=== PATIENT | male | born 1985 | race Caucasian/White ===

== ENCOUNTER 2017-02-06 14:01 | Emergency (ER) | payer OTHER ==
[~2017-02-06] VITALS: Ht 177.8 cm; Wt 76.5 kg
[~2017-02-06 14:01] MED LIST: CHLO50TA PO; IBUP-103 PO; ONDA4TAB7 SL
[2017-02-06 14:13] VITALS: TEMP 37.2; Ht 177.8 cm; Wt 76.5 kg
[2017-02-06] MEDS ORDERED: METH10TA2 PO (14:39)
[2017-02-06] MEDS ORDERED: SODIUM CHLORIDE 0.9% 1000ML 1,000 ML IV STA ×2 (15:14→17:04)
[2017-02-06 15:25] VITALS: O2SAT 97
[2017-02-06] MEDS ORDERED: KETOROLAC TROMETHAMINE 30 MG/ML VIAL IV STA (15:36)
[2017-02-06 15:46] LABS: BASO % 0.4 %; BASO ABS # 0.04 K/uL (0-0.2); COMPLETE YES; EOS % 1.5 %; IG% 0.2 %; LYMPH % 32.7 %; LYMPH ABS # 3.49 K/uL (1.2-3.4); MEAN CELL VOLUME 86.4 fL (80-100); MEAN CORPUSCULAR HEMOGLOBIN 30.9 pg (25-34); MEAN CORPUSCULAR HGB CONC 35.8 g/dl (32-36); MONO % 7.5 %; NEUT % 57.7 %; PLATELET COUNT 281 K/uL (130-400); RED BLOOD COUNT 5.21 M/uL (4.7-6.1); WHITE BLOOD COUNT 10.66 K/uL (4.8-10.8)
--- NOTE | 2017-02-06 15:55 | DIAGNOSTIC IMAGING REPORT ---
CHEST 2 VIEWS ROUTINE CLINICAL HISTORY: cough, chest pain COMPARISON STUDY: 09/09/2013 FINDINGS: The cardiac and mediastinal contours are normal. There is no evidence of focal pulmonary consolidation. There is no evidence of failure. No pleural effusions are visualized.[ IMPRESSION: No active disease in the chest. Electronically signed by: Júnior Melendrez M.D. 02/06/2017 3:54 PM Dictated Date/Time: 02/06/2017 3:53 PM
[2017-02-06 16:04] LABS: BUN/CREATININE RATIO 12.2 (10-20); CALCIUM 9.2 mg/dl (8.5-10.1); CREATININE 0.85 mg/dl (0.60-1.40)
[2017-02-06 16:07] LABS: ALB/GLOB RATIO 1.1 (0.9-2)
[2017-02-06 16:21] LABS: URINE APPEARANCE CLEAR (CLEAR); URINE BILIRUBIN NEG (NEG); URINE COLOR DK YELLOW; URINE NITRITE NEG (NEG); URINE PH 6.5 (4.5-7.5); URINE SPECIFIC GRAVITY 1.026 (1.000-1.030); UROBILINOGEN NEG (NEG); ZZUR CULT IF INDIC CLEAN CATCH NO
[2017-02-06 16:26] LABS: MANUAL MICROSCOPIC REQUIRED? NO; REVIEW REQ? NO
[2017-02-06] MEDS ORDERED: METH4PAK PO (17:56)
[2017-02-06] MEDS ORDERED: AMOX500T3 PO (17:56)
--- NOTE | 2017-02-06 17:57 | EMERGENCY ROOM VISIT NOTE ---
History First contact with patient: 15:02 Chief Complaint: ILLNESS Stated Complaint: SICK, CP, WEST, SORETHROAT, COUGHING UP BLOOD History of Present Illness The patient is a 31 year old male who presents to the Emergency Room with complaints of flulike symptoms which began 3 days ago. The patient reports that he has had substernal chest discomfort, sore throat, fatigue, headaches, chills, cough and pressure in his years. He has not taken his temperature, but feels feverish. He reports he has had 2 episodes of vomiting, both of which were streaked with a scant amount of bright red blood. The patient does report he is exposed to several ill contacts daily at his job. He is a smoker. The patient did not receive a flu vaccination this year. He denies any neck pain/ stiffness, abdominal pain, urinary symptoms, changes in bowel movements or shortness of breath. He has not been taking any medication for his symptoms. Review of Systems A complete 10-point Review of Systems was discussed with the patient, with pertinent positives and negatives listed in the History of Present Illness. All remaining Review of Systems questions can be considered negative unless otherwise specified. Past Medical/Surgical History Medical Problems: (1) Kidney stone (2) Polyp of gallbladder Social History Smoking Status: Current Every Day Smoker Alcohol Use: none Marital Status: Housing Status: lives with significant other Occupation Status: employed Current/Historical Medications Scheduled Amoxicillin (Amoxil), 500 MG PO TID Methadone Hcl (Dolophine), 59 MG PO DAILY Methylprednisolone (Medrol Dosepak), 0 PO DAILY Allergies Coded Allergies: Morphine (Verified Allergy, Intermediate, hives, 02/06/17) Physical Exam Vital Signs Date Time Temp Pulse Resp B/P Pulse Ox O2 Delivery O2 Flow Rate FiO2 02/06/17 18:30 76 16 106/74 97 02/06/17 17:33 60 16 110/66 96 Room Air 02/06/17 16:03 63 02/06/17 15:58 67 18 105/59 96 Room Air 02/06/17 15:25 97 Room Air 02/06/17 14:13 37.2 118 18 151/94 97 Room Air Physical Exam VITALS: Vitals are noted on the nurse's note and reviewed by myself. Vital signs stable. GENERAL: This is a 31-year-old male, in no acute distress, nontoxic in appearance, well-developed well-nourished. SKIN: The skin was without rashes. EARS: External auditory canals clear, tympanic membranes pearly hoff without erythema or effusion bilaterally. EYES: Pupils equal round and reactive to light and accommodation. Conjunctivae without injection, sclerae without icterus. Extraocular movements intact. NOSE: Patent, turbinates without inflammation or discharge. No sinus tenderness. MOUTH: Mucous membranes moist. Tonsils are not enlarged. Pharynx without erythema or exudate. NECK: Supple without nuchal rigidity. No lymphadenopathy. No meningismus. HEART: Regular rate and rhythm without murmurs gallops or rubs. LUNGS: Clear to auscultation bilaterally without wheezes, rales or rhonchi. ABDOMEN: Positive bowel sounds x 4. Soft, nontender to palpation. NEURO: Patient was alert and oriented to person place and time. Medical Decision & Procedures ER Provider Diagnostic Interpretation: CHEST 2 VIEWS ROUTINE CLINICAL HISTORY: cough, chest pain COMPARISON STUDY: 09/09/2013 FINDINGS: The cardiac and mediastinal contours are normal. There is no evidence of focal pulmonary consolidation. There is no evidence of failure. No pleural effusions are visualized.[ IMPRESSION: No active disease in the chest. Laboratory Results 02/06/17 15:25 Red Blood Count 5.21, Mean Corpuscular Volume 86.4, Mean Corpuscular Hemoglobin 30.9, Mean Corpuscular Hemoglobin Concent 35.8, Mean Platelet Volume 10.0, Neutrophils (%) (Auto) 57.7, Lymphocytes (%) (Auto) 32.7, Monocytes (%) (Auto) 7.5, Eosinophils (%) (Auto) 1.5, Basophils (%) (Auto) 0.4, Neutrophils # (Auto) 6.15, Lymphocytes # (Auto) 3.49, Monocytes # (Auto) 0.80, Eosinophils # (Auto) 0.16, Basophils # (Auto) 0.04 02/06/17 15:25 Test 02/06/17 15:25 02/06/17 15:35 White Blood Count 10.66 K/uL (4.8-10.8) Red Blood Count 5.21 M/uL (4.7-6.1) Hemoglobin 16.1 g/dL (14.0-18.0) Hematocrit 45.0 % (42-52) Mean Corpuscular Volume 86.4 fL (80-100) Mean Corpuscular Hemoglobin 30.9 pg (25-34) Mean Corpuscular Hemoglobin Concent 35.8 g/dl (32-36) Platelet Count 281 K/uL (130-400) Mean Platelet Volume 10.0 fL (7.4-10.4) Neutrophils (%) (Auto) 57.7 % Lymphocytes (%) (Auto) 32.7 % Monocytes (%) (Auto) 7.5 % Eosinophils (%) (Auto) 1.5 % Basophils (%) (Auto) 0.4 % Neutrophils # (Auto) 6.15 K/uL (1.4-6.5) Lymphocytes # (Auto) 3.49 K/uL (1.2-3.4) Monocytes # (Auto) 0.80 K/uL (0.11-0.59) Eosinophils # (Auto) 0.16 K/uL (0-0.5) Basophils # (Auto) 0.04 K/uL (0-0.2) RDW Standard Deviation 38.6 fL (36.4-46.3) RDW Coefficient of Variation 12.1 % (11.5-14.5) Immature Granulocyte % (Auto) 0.2 % Immature Granulocyte # (Auto) 0.02 K/uL (0.00-0.02) D-Dimer 320 ug/L FEU (0-500) Urine Color DK YELLOW Urine Appearance CLEAR (CLEAR) Urine pH 6.5 (4.5-7.5) Urine Specific [place] 1.026 (1.000-1.030) Urine Protein NEG (NEG) Urine Glucose (UA) NEG (NEG) Urine Ketones TRACE (NEG) Urine Occult Blood NEG (NEG) Urine Nitrite NEG (NEG) Urine Bilirubin NEG (NEG) Urine Urobilinogen NEG (NEG) Urine Leukocyte Esterase NEG (NEG) Anion Gap 7.0 mmol/L (3-11) Est Creatinine Clear Calc Drug Dose 127.6 ml/min Estimated GFR () 132.7 Estimated GFR (Non- 114.5 BUN/Creatinine Ratio 12.2 (10-20) Calcium Level 9.2 mg/dl (8.5-10.1) Total Bilirubin 0.8 mg/dl (0.2-1) Aspartate Amino Transf (AST/SGOT) 15 U/L (15-37) Alanine Aminotransferase (ALT/SGPT) 32 U/L (12-78) Alkaline Phosphatase 111 U/L (45-117) Troponin I < 0.015 ng/ml (0-0.045) Total Protein 7.9 gm/dl (6.4-8.2) Albumin 4.2 gm/dl (3.4-5.0) Globulin 3.7 gm/dl (2.5-4.0) Albumin/Globulin Ratio 1.1 (0.9-2) Influenza Type A Antigen Neg for Influ A (NEG) Influenza Type B Antigen Neg for Influ B (NEG) Medications Administered Medications (Trade) Dose Ordered Sig/Anthony Route Start Time Stop Time Status Last Admin Dose Admin Sodium Chloride (Nss 1000ml) 1,000 ml @ 999 mls/hr Q1H1M STAT IV 02/06/17 15:14 02/06/17 16:14 DC 02/06/17 15:31 999 MLS/HR Ketorolac Tromethamine 30 mg 30 mg NOW STAT IV 02/06/17 15:36 02/06/17 15:37 DC 02/06/17 15:42 30 MG Sodium Chloride (Nss 1000ml) 1,000 ml @ 999 mls/hr Q1H1M STAT IV 02/06/17 17:04 02/06/17 18:04 DC 02/06/17 17:15 999 MLS/HR ECG Indication: chest pain Rate (beats per minute): 59 Rhythm: sinus bradycardia Findings: no acute ischemic change, no ectopy Change: no significant change Medical Decision Differential diagnosis includes influenza, upper respiratory infection, asthma exacerbation, pulmonary embolism, pneumonia, among others. The patient was evaluated as above. Labs were drawn and IV access was obtained. Imaging studies were performed and read by radiology as above. The patient was medicated with 2 L normal saline solution and 30 g Toradol IV. The patient was reassessed multiple times during their stay in the emergency department and remained in stable condition. The patient is a 31-year-old male who presents today complaining of flulike symptoms. His main complaint is cough and substernal chest discomfort. Labs revealed no leukocytosis, anemia or concerning electrolyte abnormalities. D- dimer was not elevated. Troponin was not elevated. Urinalysis was not suggestive of infection. Chest x-ray showed no evidence of pneumonia. EKG was interpreted by myself and showed no evidence of ischemia. The patient likely has an upper respiratory infection. The blood in his vomit was likely due to esophageal irritation. He will be placed on amoxicillin and medrol dosepak for bronchitis. He was instructed to follow up with his primary care provider and return sooner for worsening symptoms. Based on the patient's presentation, lab results, and imaging studies, I feel the patient is stable for outpatient treatment. Discharge instructions were reviewed with the patient. The patient verbalized understanding of my assessment and treatment plan and was discharged home in good condition. Impression Primary Impression: Upper respiratory infection Departure Information Dispostion Home / Self-Care Condition GOOD Prescriptions Methylprednisolone (MEDROL DOSEPAK) 4 Mg [place] 0 PO DAILY, #1 PKT Prov: Graciela Washington .PATRICIA 02/06/17 Amoxicillin (AMOXIL) 500 Mg Tab 500 MG PO TID for 7 Days, #21 TAB Prov: Graciela Washington .PATRICIA 02/06/17 Referrals Shola Tillman M.D. (PCP) Patient Instructions My [facility] Additional Instructions You were prescribed amoxicillin to be taken as prescribed. This is an antibiotic. All antibiotics have the potential to cause diarrhea. Stop this medication and contact a medical provider if you were to develop any significant adverse side effects including: wheezing, shortness of breath, passing out, vomiting, or a diffuse rash. Always take antibiotics as directed and COMPLETE the ENTIRE course regardless of the improvement of your symptoms. You have been prescribed a Medrol Dosepak. This is a steroid which will help decrease your inflammation, redness, and itch. Take the medicine as prescribed. Take the ENTIRE 6 day course of the steroids. For pain control, you can use the following [id number] medicines (if >12 yo): - Regular strength (325mg/tab) Tylenol (acetaminophen) 2 tabs every 4-6 hours as needed. Do not exceed 12 tablets in a 24 hour period. Avoid taking more than 4 grams (4000 mg) of Tylenol per day. This includes any other sources of acetaminophen you may take on a regular basis. - Regular strength (200 mg/tab) Advil (ibuprofen) 1-2 tabs every 4-6 hours as needed. Do not exceed a dose of 3200 mg per day. Rest and drink plenty of fluids. Follow-up with her primary care provider within 3-4 days for further evaluation of your symptoms. Return to the emergency department with worsening fevers, worsening chest pain, difficulty breathing, neck pain/stiffness, or any other new/concerning symptoms. Problem Qualifiers Primary Impression: Upper respiratory infection URI type: unspecified URI Qualified Codes: J06.9 - Acute upper respiratory infection, unspecified
[2017-02-06 18:30] VITALS: BP 106/74; PULSE 76; O2SAT 97
[2017-06-25] MEDS ORDERED: IBUP-1050 PO (16:05)
[2017-06-25] MEDS ORDERED: METH10SO PO (16:05)
== END 2017-02-06 18:31 | disposition home or self-care (01) ==
LOC: C.EDB 14:04 → C.EDA 18:31
DX: J06.9 Acute upper respiratory infection, unspecified (principal); F17.210 Nicotine dependence, cigarettes, uncomplicated; Z87.442 Personal history of urinary calculi; Z79.899 Other long term (current) drug therapy

== ENCOUNTER → 2017-06-08 | Outpatient (CLI) | payer OTHER ==
[~2017-06-08] MED LIST changes: +AMOX500T3 PO; -CHLO50TA PO; -IBUP-103 PO; +IBUP-1050 PO; +METH10SO PO; +METH10TA2 PO; -ONDA4TAB7 SL
--- NOTE | 2017-06-08 17:21 | DIAGNOSTIC IMAGING REPORT ---
KUB CLINICAL HISTORY: Renal calculi COMPARISON STUDY: July 25, 2016 FINDINGS: There is no pathologic bowel dilatation. There is a stable 6 mm lower pole left renal calculus. The renal shadows are partially obscured overlying bowel gas and fecal material. There are no calcifications suspicious for ureteral calculi. IMPRESSION: Stable 6 mm lower pole left renal calculus Electronically signed by: Júnior Melendrez M.D. 06/08/2017 5:20 PM Dictated Date/Time: 06/08/2017 5:19 PM
== END | disposition home or self-care (01) ==
LOC: C.RAD 17:02
PROVIDERS: ATTEND Nurse Practitioner Family
DX: N20.0 Calculus of kidney (principal)

== ENCOUNTER → 2017-07-17 | Outpatient (CLI) | payer OTHER ==
[~2017-07-17] MED LIST changes: -AMOX500T3 PO; -METH10TA2 PO
[2017-07-17 17:57] LABS: BASO % 0.3 %; BASO ABS # 0.03 K/uL (0-0.2); COMPLETE YES; EOS % 3.6 %; HEMATOCRIT 38.9 % (42-52); IG% 0.1 %; LYMPH % 47.9 %; LYMPH ABS # 4.13 K/uL (1.2-3.4); MEAN CELL VOLUME 87.6 fL (80-100); MEAN CORPUSCULAR HEMOGLOBIN 30.2 pg (25-34); MEAN CORPUSCULAR HGB CONC 34.4 g/dl (32-36); MEAN PLATELET VOLUME 10.5 fL (7.4-10.4); MONO % 6.3 %; NEUT % 41.8 %; PLATELET COUNT 262 K/uL (130-400); RED BLOOD COUNT 4.44 M/uL (4.7-6.1); WHITE BLOOD COUNT 8.62 K/uL (4.8-10.8)
[2017-07-17 18:05] LABS: URINE APPEARANCE CLEAR (CLEAR); URINE BILIRUBIN NEG (NEG); URINE COLOR YELLOW; URINE EPITHELIAL CELL AUTO 0-5 /lpf (0-5); URINE NITRITE NEG (NEG); URINE PH 6.5 (4.5-7.5); URINE SPECIFIC GRAVITY 1.029 (1.000-1.030); UROBILINOGEN NEG (NEG)
[2017-07-17 18:11] LABS: MANUAL MICROSCOPIC REQUIRED? NO; REVIEW REQ? NO
[2017-07-17 18:23] LABS: BLOOD UREA NITROGEN 8 mg/dl (7-18); BUN/CREATININE RATIO 10.1 (10-20); CARBON DIOXIDE 28 mmol/L (21-32); CHLORIDE 109 mmol/L (98-107); POTASSIUM 3.4 mmol/L (3.5-5.1); SODIUM 142 mmol/L (136-145)
== END | disposition home or self-care (01) ==
LOC: C.CPL 16:32
PROVIDERS: ATTEND Nurse Practitioner Family
DX: N20.0 Calculus of kidney (principal)

== ENCOUNTER → 2017-07-25 | Outpatient (CLI) | payer OTHER ==
--- NOTE | 2017-07-25 18:17 | DIAGNOSTIC IMAGING REPORT ---
KUB CLINICAL HISTORY: 31 years-old Male presenting with NEPHROLITHIASIS. TECHNIQUE: Single supine view of the abdomen was obtained. COMPARISON: 06/08/2017. FINDINGS: Moderate stool burden in the right colon. Stool and gas degrade evaluation of the renal shadows. Within this limitation, calcification noted over the left lower pole consistent with calculus. This is unchanged in position. Nonobstructive bowel gas pattern. Lung bases clear. Osseous structures normal. IMPRESSION: 1. Stable appearance of the left lower pole renal calculus. Electronically signed by: Jermaine Wilson M.D. 07/25/2017 6:15 PM Dictated Date/Time: 07/25/2017 6:14 PM
== END | disposition home or self-care (01) ==
LOC: C.RAD 17:34
PROVIDERS: ATTEND Nurse Practitioner Family
DX: N20.0 Calculus of kidney (principal)

== ENCOUNTER → 2017-07-26 | Day surgery (SDC) | payer OTHER ==
[2017-06-25 16:05] VITALS: Ht 177.8 cm; Wt 77.3 kg
[~2017-07-26] VITALS: Ht 177.8 cm; Wt 77.3 kg
[~2017-07-26] MED LIST changes: +ATROPINE SULFATE 0.1 MG/ML 5ML SYR IV PRN; +CEFAZOLIN 1000MG/55 ML D5W IV SCH; +CEFAZOLIN SOD 1 GM VIAL ONE; +CIPROFLOXACIN 400MG / D5W IV SCH; +DEXAMETHASONE SOD INJ 4 MG/ML VIAL ONE; +EpHEDrine SULFATE INJ 50 MG/ML AMP IV PRN; +EpHEDrine SULFATE INJ 50 MG/ML AMP ONE; +FENTANYL CITRATE INJ 50 MCG/1 ML 2 ML VIAL IV PRN; +FENTANYL CITRATE INJ 50 MCG/1 ML 2 ML VIAL ONE; +FLUMAZENIL 0.1 MG/1 ML 10 ML VIAL IV PRN; +LABETALOL HCL IV 5 MG/ML 20ML IV PRN; +LACTATED RINGER'S 1000ML 1,000 ML IV SCH; +LIDOCAINE HCL 2% 2 ML VIAL (20MG/ML) ONE; +MEPERIDINE HCL 25 MG/ML CARP IV PRN; +MIDAZOLAM HCL 1 MG/ML 2ML VIAL ONE; +NALOXONE HCL 0.4 MG/1 ML VIAL/CARP IV PRN; +ONDANSETRON INJ 2 MG/ML 2 ML VIAL IV PRN; +ONDANSETRON INJ 2 MG/ML 2 ML VIAL ONE; +PHENYLEPHRINE 100MCG/ML 5ML SYR IV PRN; +PROPOFOL IV EMULSION 10 MG/ML 20 ML VIAL IV ONE
--- NOTE | 2017-07-26 08:56 | History & Physical Bridge - SC ---
H&P Re-Evaluation Bridge Note: I have examined the patient, reviewed the History & Physical and in the interval since the performance of the History & Physical I have noted the following changes of clinical significance: No changes noted
--- NOTE | 2017-07-26 09:37 | [facility] Post Operative Brief Note ---
Immediate Operative Summary Operative Date Jul 26, 2017. Pre-Operative Diagnosis Left renal calculi Post-Operative Diagnosis Same as pre-op Procedure(s) Performed Left Extracorporeal Shock Wave Lithotripsy - Renal Surgeon Dr. Hayes Tang [employer] Surgeon(s) None Estimated Blood Loss 0 mL Findings stone appeared to break Specimens None
--- NOTE | 2017-07-26 09:39 | Discharge Instructions-SurgCtr ---
Discharge Instructions Date of Service Jul 26, 2017. Visit Reason for Visit: Stones Discharge Discharge Diagnosis / Problem: l lower pole stone Discharge Goals Goal(s): Improve disease control Activity Recommendations Activity Limitations: resume your previous activity Anesthesia . Post Anesthesia Instructions: If you have had General Anesthesia or IV Sedation: * Do not drive today. * Resume driving when surgeon permits. * Do not make important decisions or sign legal documents today. * Call surgeon for: 1. Temperature elevations greater than 101 degrees F. 2. Uncontrollable pain. 3. Excessive bleeding. 4. Persistent nausea and vomiting. 5. Medication intolerance (nausea, vomiting or rash). * For nausea and vomiting use only clear liquids such as: tea, soda, bouillon until nausea subsides, then gradually increase diet as tolerated. * If you have any concerns or questions, call your surgeon's office. If physician is unavailable and it is an emergency, call 911 or go to the nearest emergency room. . Diet Recommendations Home Diet: resume previous diet Procedures Procedures Performed: Left Extracorporeal Shock Wave Lithotripsy - Renal Pending Studies Studies pending at discharge: no Medical Emergencies . Who to Call and When: Medical Emergencies: If at any time you feel your situation is an emergency, please call 911 immediately. . Non-Emergent Contact Non-Emergency issues call your: Urologist . . "Provider Documentation" section prepared by Darrell Tang. .
--- NOTE | 2017-07-26 10:33 | Anesthesia Progress Nt - [facility] ---
Anesthesia Post Op Note Date & Time Jul 26, 2017 at 10:33 Vital Signs Pain Intensity: 3 Vital Signs Past 12 Hours Date Time Temp Pulse Resp B/P (MAP) Pulse Ox O2 Delivery O2 Flow Rate FiO2 07/26/17 10:25 36.4 78 16 119/89 (99) 96 Room Air 07/26/17 10:20 36.4 70 19 128/87 96 Room Air 07/26/17 10:15 125/82 07/26/17 10:15 125/82 07/26/17 10:13 89 26 96 07/26/17 10:13 89 26 96 07/26/17 10:13 91 26 07/26/17 10:13 91 26 07/26/17 10:10 122/80 07/26/17 10:10 122/80 07/26/17 10:08 77 12 97 07/26/17 10:08 77 12 07/26/17 10:08 77 12 97 07/26/17 10:08 77 12 07/26/17 10:05 120/81 07/26/17 10:05 120/81 07/26/17 10:03 76 17 07/26/17 10:03 77 17 98 07/26/17 10:03 76 17 07/26/17 10:03 77 17 98 07/26/17 10:00 134/85 07/26/17 10:00 134/85 07/26/17 09:58 78 14 98 07/26/17 09:58 77 14 07/26/17 09:58 78 14 98 07/26/17 09:58 77 14 07/26/17 09:55 124/80 07/26/17 09:55 124/80 07/26/17 09:53 76 15 07/26/17 09:53 76 15 99 07/26/17 09:53 76 15 99 07/26/17 09:53 76 15 07/26/17 09:50 124/83 07/26/17 09:50 124/83 07/26/17 09:48 74 13 99 07/26/17 09:48 74 13 07/26/17 09:48 74 13 99 07/26/17 09:48 74 13 07/26/17 09:47 72 15 99 07/26/17 09:47 73 15 07/26/17 09:45 119/79 07/26/17 09:43 115/74 07/26/17 09:42 36.1 72 14 115/74 99 Mask 8 07/26/17 07:19 36.9 75 22 125/85 (98) 96 Room Air Notes Mental Status: alert / awake / arousable, participated in evaluation Pt Amnestic to Procedure: Yes Nausea / Vomiting: adequately controlled Pain: adequately controlled Airway Patency, RR, SpO2: stable & adequate BP & HR: stable & adequate Hydration State: stable & adequate Anesthetic Complications: no major complications apparent
[2017-07-26 10:45] VITALS: BP 121/83; PULSE 82; O2SAT 97
--- NOTE | 2017-07-26 11:50 | OPERATIVE REPORT ---
DATE OF OPERATION: 07/26/2017 PREOPERATIVE DIAGNOSIS: Left lower pole renal stone. POSTOPERATIVE DIAGNOSIS: Same. SURGEON: Dr. Tang. PROCEDURE PERFORMED: Left renal ESWL. ANESTHESIA: General. INDICATIONS: The patient is a 31-year-old male with a left lower pole stone, here for elective ESWL. DESCRIPTION OF THE PROCEDURE: The patient was taken to the operating room where general anesthesia was administered. He had Venodyne stockings placed prior to this and was given preoperative Ancef. The stone was easily visualized from posteriorly. The patient was given 2500 shocks, the majority at level 4. The stone did appear to fragment. At the end of the procedure, the patient was transferred to the recovery room in stable condition. I attest to the content of the Intraoperative Record and any orders documented therein. Any exception s are noted below.
== END | disposition home or self-care (01) ==
LOC: X.SURG 07:04
PROVIDERS: ATTEND Urology
DX: N20.0 Calculus of kidney (principal); R10.9 Unspecified abdominal pain; F11.20 Opioid dependence, uncomplicated; L25.9 Unspecified contact dermatitis, unspecified cause; K82.9 Disease of gallbladder, unspecified; E87.8 Other disorders of electrolyte and fluid balance, not elsewhere classified; R11.2 Nausea with vomiting, unspecified; R35.0 Frequency of micturition; F17.200 Nicotine dependence, unspecified, uncomplicated

== ENCOUNTER → 2017-08-26 | Outpatient (CLI) | payer OTHER ==
[~2017-08-26] MED LIST changes: -ATROPINE SULFATE 0.1 MG/ML 5ML SYR IV PRN; -CEFAZOLIN 1000MG/55 ML D5W IV SCH; -CEFAZOLIN SOD 1 GM VIAL ONE; -CIPROFLOXACIN 400MG / D5W IV SCH; -DEXAMETHASONE SOD INJ 4 MG/ML VIAL ONE; -EpHEDrine SULFATE INJ 50 MG/ML AMP IV PRN; -EpHEDrine SULFATE INJ 50 MG/ML AMP ONE; -FENTANYL CITRATE INJ 50 MCG/1 ML 2 ML VIAL IV PRN; -FENTANYL CITRATE INJ 50 MCG/1 ML 2 ML VIAL ONE; -FLUMAZENIL 0.1 MG/1 ML 10 ML VIAL IV PRN; -LABETALOL HCL IV 5 MG/ML 20ML IV PRN; -LACTATED RINGER'S 1000ML 1,000 ML IV SCH; -LIDOCAINE HCL 2% 2 ML VIAL (20MG/ML) ONE; -MEPERIDINE HCL 25 MG/ML CARP IV PRN; -MIDAZOLAM HCL 1 MG/ML 2ML VIAL ONE; -NALOXONE HCL 0.4 MG/1 ML VIAL/CARP IV PRN; -ONDANSETRON INJ 2 MG/ML 2 ML VIAL IV PRN; -ONDANSETRON INJ 2 MG/ML 2 ML VIAL ONE; -PHENYLEPHRINE 100MCG/ML 5ML SYR IV PRN; -PROPOFOL IV EMULSION 10 MG/ML 20 ML VIAL IV ONE
--- NOTE | 2017-08-26 16:50 | DIAGNOSTIC IMAGING REPORT ---
KUB CLINICAL HISTORY: N20.0 Nephrolithiasis COMPARISON STUDY: 07/25/2017 FINDINGS: There is no pathologic bowel dilatation. The renal shadows are partially obscured by overlying bowel gas and fecal material. There are punctate bilateral renal calcifications consistent with calculi. There is decreased left renal stone burden. IMPRESSION: 1. No evidence of bowel obstruction 2. Bilateral nephrolithiasis with interval decrease in the left-sided stone burden Electronically signed by: Júnior Melendrez M.D. 08/26/2017 4:49 PM Dictated Date/Time: 08/26/2017 4:48 PM
== END | disposition home or self-care (01) ==
LOC: C.RAD 16:34
PROVIDERS: ATTEND Nurse Practitioner Family
DX: N20.0 Calculus of kidney (principal)

== ENCOUNTER 2017-10-15 09:06 | Emergency (ER) | payer OTHER ==
[~2017-10-15] VITALS: Ht 177.8 cm; Wt 74.7 kg
[2017-10-15 09:13] VITALS: TEMP 36.6; Ht 177.8 cm; Wt 74.7 kg
--- NOTE | 2017-10-15 09:47 | EMERGENCY ROOM VISIT NOTE ---
History Report prepared by Wyatt: Sushma King Under the Supervision of: Dr. Jesus Manuel Max M.D. First contact with patient: 09:10 Stated Complaint: ABDOMINAL PAIN History of Present Illness The patient is a 31 year old white male with a past medical history of kidney stones, gallbladder polyp, lithotripsy who presents to the ED with a cc of persistent abdominal pain beginning around 0530 this morning. Positive nausea and vomiting. He currently rates his discomfort as an 8/10 in severity. The patient states that he currently takes methadone for a past history of drug addiction. He denies any recent drug use. The patient denies any alcohol use, but states that he uses tobacco. He denies any recent travel, antibiotic use, or sick contacts. The patient states that his last bowel movement was this morning. Source of History: patient Onset: 0530 this morning Position: abdomen Symptom Intensity: 8/10 Timing: other (persistent) Associated Symptoms: + nausea, + vomiting Review of Systems See HPI for pertinent positives and negatives. A total of ten systems were reviewed and were otherwise negative. Past Medical & Surgical Medical Problems: (1) Bronchitis (2) Hypertension (3) Kidney stone (4) Pneumonia (5) Polyp of gallbladder Family History Cancer FHx: gallbladder disease Hypertension Kidney disease Kidney stones Lung disease Social History Smoking Status: Current Every Day Smoker Alcohol Use: none Marital Status: Housing Status: lives with significant other Occupation Status: employed Current/Historical Medications Scheduled Methadone Hcl (Methadone Hcl), 43 MG PO QAM Ondasetron Odt (Zofran Odt), 4 MG SL Q6H Allergies Coded Allergies: Morphine (Verified Allergy, Intermediate, hives, 10/15/17) Ciprofloxacin (Verified Adverse Reaction, Unknown, REACTION WITH METHADONE , 10/15/17) Clarithromycin (Verified Adverse Reaction, Unknown, REACTION WITH METHADONE, 10/15/17) Erythromycin (Verified Adverse Reaction, Unknown, REACTION WITH METHADONE , 10/15/17) Tramadol (Verified Adverse Reaction, Unknown, REACTION WITH METHADONE, ) Physical Exam Vital Signs Date Time Temp Pulse Resp B/P (MAP) Pulse Ox O2 Delivery O2 Flow Rate FiO2 10/15/17 12:51 70 20 120/71 100 10/15/17 10:56 76 20 118/83 97 10/15/17 09:13 36.6 63 20 112/73 95 Room Air Physical Exam GENERAL: Awake, alert, well-appearing, NAD HENT: Normocephalic, atraumatic. EYES: Normal conjunctiva. Sclera non-icteric. NECK: Supple. No nuchal rigidity. FROM. RESPIRATORY: CTAB, no rhonchi, wheezing, crackles CARDIAC: RRR, no MRG ABDOMEN: Soft, Periumbilical pain, diffuse, generalized tenderness to palpation , no CVA tenderness to palpation, ND, BS+ MSK: No chest wall TTP, no LE edema NEURO: GCS 15, CN 2-12 intact, moves all 4s on command SKIN: Diaphoretic. No rash or jaundice noted. Medical Decision & Procedures ER Provider Diagnostic Interpretation: X-ray: Per my interpretation, radiologist review. ABDOMEN 2VIEW W/PA CHEST RTN CLINICAL HISTORY: Abdominal pain COMPARISON STUDY: 08/26/2017 FINDINGS: The erect chest reveals no free air. There is no focal pulmonary consolidation. Erect and supine views the abdomen reveal no abnormally dilated loops of large or small bowel. There are no transition zones indicate bowel obstruction. There is a punctate left renal calculus. The right renal shadow is largely obscured, but the previously described tiny right renal calculus is again felt to be present. IMPRESSION: 1. Bilateral nephrolithiasis 2. No evidence of bowel obstruction. No evidence of free air Electronically signed by: Júnior Melendrez M.D. 10/15/2017 10:46 AM Dictated Date/Time: 10/15/2017 10:45 AM Laboratory Results 10/15/17 09:55 Red Blood Count 5.03, Mean Corpuscular Volume 85.9, Mean Corpuscular Hemoglobin 30.4, Mean Corpuscular Hemoglobin Concent 35.4, Mean Platelet Volume 10.6, Neutrophils (%) (Auto) 81.9, Lymphocytes (%) (Auto) 14.3, Monocytes (%) (Auto) 3.2, Eosinophils (%) (Auto) 0.2, Basophils (%) (Auto) 0.2, Neutrophils # (Auto) 10.11, Lymphocytes # (Auto) 1.76, Monocytes # (Auto) 0.40, Eosinophils # (Auto) 0.03, Basophils # (Auto) 0.02 10/15/17 09:55 Test 10/15/17 09:55 White Blood Count 12.35 K/uL (4.8-10.8) Red Blood Count 5.03 M/uL (4.7-6.1) Hemoglobin 15.3 g/dL (14.0-18.0) Hematocrit 43.2 % (42-52) Mean Corpuscular Volume 85.9 fL (80-100) Mean Corpuscular Hemoglobin 30.4 pg (25-34) Mean Corpuscular Hemoglobin Concent 35.4 g/dl (32-36) Platelet Count 262 K/uL (130-400) Mean Platelet Volume 10.6 fL (7.4-10.4) Neutrophils (%) (Auto) 81.9 % Lymphocytes (%) (Auto) 14.3 % Monocytes (%) (Auto) 3.2 % Eosinophils (%) (Auto) 0.2 % Basophils (%) (Auto) 0.2 % Neutrophils # (Auto) 10.11 K/uL (1.4-6.5) Lymphocytes # (Auto) 1.76 K/uL (1.2-3.4) Monocytes # (Auto) 0.40 K/uL (0.11-0.59) Eosinophils # (Auto) 0.03 K/uL (0-0.5) Basophils # (Auto) 0.02 K/uL (0-0.2) RDW Standard Deviation 38.5 fL (36.4-46.3) RDW Coefficient of Variation 12.3 % (11.5-14.5) Immature Granulocyte % (Auto) 0.2 % Immature Granulocyte # (Auto) 0.03 K/uL (0.00-0.02) Anion Gap 10.0 mmol/L (3-11) Est Creatinine Clear Calc Drug Dose 130.7 ml/min Estimated GFR () 134.0 Estimated GFR (Non- 115.6 BUN/Creatinine Ratio 9.1 (10-20) Calcium Level 9.2 mg/dl (8.5-10.1) Total Bilirubin 0.6 mg/dl (0.2-1) Direct Bilirubin 0.1 mg/dl (0-0.2) Aspartate Amino Transf (AST/SGOT) 10 U/L (15-37) Alanine Aminotransferase (ALT/SGPT) 20 U/L (12-78) Alkaline Phosphatase 103 U/L (45-117) Total Protein 7.6 gm/dl (6.4-8.2) Albumin 4.1 gm/dl (3.4-5.0) Lipase 120 U/L (73-393) Laboratory results reviewed by me Medications Administered Medications (Trade) Dose Ordered Sig/Anthony Route Start Time Stop Time Status Last Admin Dose Admin Ketorolac Tromethamine (Toradol Inj) 30 mg NOW STAT IV 10/15/17 10:06 10/15/17 10:08 DC 10/15/17 10:12 30 MG Hydromorphone HCl (Dilaudid Inj) 0.5 mg NOW STAT IV 10/15/17 10:06 10/15/17 10:08 DC 10/15/17 10:12 0.5 MG Ondansetron HCl (Zofran Inj) 4 mg STK-MED ONCE .ROUTE 10/15/17 10:16 10/15/17 10:17 DC 10/15/17 10:18 4 MG Ondansetron HCl (Zofran Inj) 4 mg NOW STAT IV 10/15/17 10:58 10/15/17 10:59 DC 10/15/17 11:07 4 MG Acetaminophen (Tylenol Tab) 650 mg NOW STAT PO 10/15/17 11:37 10/15/17 11:38 DC 10/15/17 11:47 650 MG Ondansetron HCl (Zofran Odt) 4 mg STK-MED ONCE .ROUTE 10/15/17 11:45 10/15/17 11:46 DC 10/15/17 11:47 4 MG ED Course 0941: The patient was evaluated in room A4B. A complete history and physical exam was performed. 1006: Ordered Dilaudid Inj 0.5 mg IV, Toradol Inj 30 mg IV. 1016: Ordered Zofran Inj 4 mg .route. 1058: Ordered Zofran Inj 4 mg IV. 1135: I reevaluated the patient and he is resting comfortably. He is going to have a PO challenge. 1137: Ordered Tylenol Tab 650 mg PO, Zofran Tab 4 mg PO. 1300: Per nursing staff, the patient is feeling much better and requesting discharge. The patient is ready to go home. Medical Decision Differential diagnosis: Etiologies such as appendicitis, diverticulitis, PUD, biliary pathology, UTI, pancreatitis, obstruction, mesenteric ischemia, aortic pathology, infections, inflammatory bowel disease, renal colic, as well as others were entertained. The patient is a 31 year old white male with a past medical history of kidney stones, gallbladder polyp, lithotripsy who presents to the ED with a cc of persistent abdominal pain beginning around 0530 this morning. Patient was seen and evaluated at the bedside. Patient states that he's had a lot of abdominal pain with nausea and vomiting beginning around 5:30 this morning. Patient states he has been having normal bowel movements and has not had any issues with urination. Pain is a prior history of kidney stones. Patient states this does not feel similar. Patient denies any other infectious symptoms. On exam patient is mildly diaphoretic although his vital signs are normal. Patient does have a history of drug abuse and is on methadone. Patient did have blood work that was completed along with supportive care. Patient's blood work was fairly unremarkable patient was able tolerate by mouth. White blood cell count of 12,000. Patient had normal kidney function. Patient had no elevations in his LFTs or lipase. Patient does not have a surgical abdomen. Patient was told that he needed to give urine but refused to do so. Patient stated that he wanted to go. Patient was totally warning signs for which to return to the department. Patient was deemed suitable for outpatient follow-up and treatment with the caveat that we discussed that without the urine sample we cannot rule out things like urinary tract infection. However, the patient's kidney function is normal less likely to be an obstructing stone. Patient was counseled on smoking cessation. Patient was given strict follow-up, discharge, and return precautions. All questions were answered. Patient was deemed suitable for outpatient follow-up at this time. Patient agreed with the plan of care and was safely discharged home. Medication Reconcilliation Current Medication List: was personally reviewed by me Impression Primary Impression: Abdominal pain Additional Impression: Encounter for smoking cessation counseling Scribe Attestation The scribe's documentation has been prepared under my direction and personally reviewed by me in its entirety. I confirm that the note above accurately reflects all work, treatment, procedures, and medical decision making performed by me. Departure Information Dispostion Home / Self-Care Prescriptions Ondasetron Odt (ZOFRAN ODT) 4 Mg Tab 4 MG SL Q6H for Nausea, #6 TAB Prov: Jesus Manuel Max M.D. 10/15/17 Referrals Shola Tillman M.D. (PCP) Forms HOME CARE DOCUMENTATION FORM, IMPORTANT VISIT INFORMATION Patient Instructions Abdominal Pain, [facility] Additional Instructions Please return to the emergency department if you have worsening or recurrent symptoms not amenable to at-home treatment. Please call for a follow-up appointment with her primary care physician. Please take your medications as prescribed. If you have other concerns and/or complaints please feel free to also call your primary care physician's office or return the ED for further evaluation, management, and treatment. You received narcotic or benzodiazepene medication while in the emergency room today. This is an addictive medication that may cause drowziness as well as constipation. Do not drive, operate heavy machinery, or drink alcohol under the influence of this medication. You may take 600 mg Ibuprofen every 6 hours as needed for pain with food for no more than 2 consecutive days. You may take tylenol 1000 mg every 6 hours as needed for pain. You may take motrin and tylenol separately or at the same time. Take your medications as prescribed. You have been examined and treated today on an emergency basis only. This is not a substitute for, or an effort to provide, complete comprehensive medical care. It is impossible to recognize and treat all injuries or illnesses in a single emergency department visit. It is therefore important that you follow up closely with [facility], your PCP, and/or your specialist(s). Call as soon as possible for an appointment. Thank you for your time and consideration. I look forward to speaking with you again soon. Please don't hesitate to call us if you have any questions. Problem Qualifiers Primary Impression: Abdominal pain Abdominal location: generalized Qualified Codes: R10.84 - Generalized abdominal pain
[2017-10-15] MEDS ORDERED: HYDROmorphone INJ 0.5 MG/0.5 ML SYR IV STA (10:06)
[2017-10-15] MEDS ORDERED: KETOROLAC TROMETHAMINE 30 MG/ML VIAL IV STA (10:06)
[2017-10-15] MEDS ORDERED: ONDANSETRON INJ 2 MG/ML 2 ML VIAL ONE (10:16)
[2017-10-15 10:19] LABS: BASO % 0.2 %; BASO ABS # 0.02 K/uL (0-0.2); COMPLETE YES; EOS % 0.2 %; HEMATOCRIT 43.2 % (42-52); IG% 0.2 %; LYMPH % 14.3 %; LYMPH ABS # 1.76 K/uL (1.2-3.4); MEAN CELL VOLUME 85.9 fL (80-100); MEAN CORPUSCULAR HEMOGLOBIN 30.4 pg (25-34); MEAN CORPUSCULAR HGB CONC 35.4 g/dl (32-36); MEAN PLATELET VOLUME 10.6 fL (7.4-10.4); MONO % 3.2 %; NEUT % 81.9 %; PLATELET COUNT 262 K/uL (130-400); RED BLOOD COUNT 5.03 M/uL (4.7-6.1); WHITE BLOOD COUNT 12.35 K/uL (4.8-10.8)
[2017-10-15 10:33] LABS: BUN/CREATININE RATIO 9.1 (10-20); CALCIUM 9.2 mg/dl (8.5-10.1); CREATININE 0.83 mg/dl (0.60-1.40); POTASSIUM 3.3 mmol/L (3.5-5.1)
--- NOTE | 2017-10-15 10:48 | DIAGNOSTIC IMAGING REPORT ---
ABDOMEN 2VIEW W/PA CHEST RTN CLINICAL HISTORY: Abdominal pain COMPARISON STUDY: 08/26/2017 FINDINGS: The erect chest reveals no free air. There is no focal pulmonary consolidation. Erect and supine views the abdomen reveal no abnormally dilated loops of large or small bowel. There are no transition zones indicate bowel obstruction. There is a punctate left renal calculus. The right renal shadow is largely obscured, but the previously described tiny right renal calculus is again felt to be present. IMPRESSION: 1. Bilateral nephrolithiasis 2. No evidence of bowel obstruction. No evidence of free air Electronically signed by: Júnior Melendrez M.D. 10/15/2017 10:46 AM Dictated Date/Time: 10/15/2017 10:45 AM
[2017-10-15] MEDS ORDERED: ONDANSETRON INJ 2 MG/ML 2 ML VIAL IV STA (10:58)
[2017-10-15] MEDS ORDERED: ACETAMINOPHEN 325 MG TAB PO STA (11:37)
[2017-10-15] MEDS ORDERED: ONDANSETRON 4 MG TAB PO STA (11:37)
[2017-10-15] MEDS ORDERED: ONDANSETRON 4MG OD TAB ONE (11:45)
[2017-10-15] MEDS ORDERED: ONDA4TAB10 SL (12:43)
[2017-10-15 12:51] VITALS: BP 120/71; PULSE 70; O2SAT 100
== END 2017-10-15 12:53 | disposition home or self-care (01) ==
LOC: EDBD 09:06 → C.EDA 09:07
DX: R10.9 Unspecified abdominal pain (principal); R11.2 Nausea with vomiting, unspecified; I10 Essential (primary) hypertension; F17.200 Nicotine dependence, unspecified, uncomplicated; Z87.442 Personal history of urinary calculi; Z87.19 Personal history of other diseases of the digestive system; Z88.2 Allergy status to sulfonamides; Z88.3 Allergy status to other anti-infective agents; Z88.5 Allergy status to narcotic agent; Z88.8 Allergy status to other drugs, medicaments and biological substances; Z80.9 Family history of malignant neoplasm, unspecified; Z83.79 Family history of other diseases of the digestive system; Z82.49 Family history of ischemic heart disease and other diseases of the circulatory system; Z84.1 Family history of disorders of kidney and ureter

== ENCOUNTER → 2018-01-30 | Outpatient (CLI) | payer BC ==
[~2018-01-30] MED LIST changes: +OMEP40CA41 PO; +ONDA4TAB10 SL; +PROM12.57 PO
== END | disposition home or self-care (01) ==
LOC: C.PATHSPEC 10:11
PROVIDERS: ATTEND Urology
DX: Z30.2 Encounter for sterilization (principal)

== ENCOUNTER 2018-02-02 10:31 | Emergency (ER) | payer BC ==
[~2018-02-02] VITALS: Ht 177.8 cm; Wt 73.1 kg
[~2018-02-02 10:31] MED LIST changes: -IBUP-1050 PO; -OMEP40CA41 PO; -PROM12.57 PO
[2018-02-02 10:44] VITALS: Ht 177.8 cm; Wt 73.1 kg
[2018-02-02] MEDS ORDERED: SODIUM CHLORIDE 0.9% 1000ML 1,000 ML IV STA (11:10)
[2018-02-02] MEDS ORDERED: ONDANSETRON INJ 2 MG/ML 2 ML VIAL IV STA (11:10)
--- NOTE | 2018-02-02 11:17 | EMERGENCY ROOM VISIT NOTE ---
History Report prepared by Wyatt: Daniel Beard Under the Supervision of: Dr. Andrew Hagan D.O. First contact with patient: 10:59 Chief Complaint: ABDOMINAL PAIN Stated Complaint: STOMACH PAIN, VOMITING History of Present Illness The patient is a 32 year old male who presents to the Emergency Room with complaints of constant abdominal pain starting yesterday. He additionally notes that he has been nauseous and vomiting today and yesterday. The patient denies any diarrhea, fever, and back pain. He reports that he had a vasectomy three days ago, and he states that he is not having any testicular pain. The patient has a history of kidney stones, though no other medical problems. He states that no one else is sick at home around him. The patient additionally noted that his hands are clammy. Source of History: patient Onset: yesterday Position: abdomen Timing: constant Associated Symptoms: + vomiting, No fevers, No back pain, No diarrhea Review of Systems See HPI for pertinent positives & negatives. A total of 10 systems reviewed and were otherwise negative. Past Medical & Surgical Medical Problems: (1) Bronchitis (2) Hypertension (3) Kidney stone (4) Pneumonia (5) Polyp of gallbladder Family History Cancer FHx: gallbladder disease Hypertension Kidney disease Kidney stones Lung disease Social History Smoking Status: Current Every Day Smoker Alcohol Use: none Marital Status: Housing Status: lives with significant other Occupation Status: employed Current/Historical Medications Scheduled Methadone Hcl (Methadone Hcl), 37 MG PO QAM Ondasetron Odt (Zofran Odt), 4 MG SL Q6H Allergies Coded Allergies: Morphine (Verified Allergy, Intermediate, hives, 02/02/18) Ciprofloxacin (Verified Adverse Reaction, Unknown, REACTION WITH METHADONE , 02/02/18) Clarithromycin (Verified Adverse Reaction, Unknown, REACTION WITH METHADONE, 02/02/18) Erythromycin (Verified Adverse Reaction, Unknown, REACTION WITH METHADONE , 02/02/18) Tramadol (Verified Adverse Reaction, Unknown, REACTION WITH METHADONE, 02/02) Physical Exam Vital Signs Date Time Temp Pulse Resp B/P (MAP) Pulse Ox O2 Delivery O2 Flow Rate FiO2 02/02/18 13:01 60 18 96/81 97 Room Air 02/02/18 12:26 58 02/02/18 12:18 36.9 59 18 121/77 97 Room Air 02/02/18 10:44 36.7 65 18 158/108 100 Room Air Physical Exam GENERAL: Patient is awake, alert, very anxious and appears to be in moderate discomfort. EYES: The conjunctivae are clear. The pupils are round and reactive. EARS, NOSE, MOUTH AND THROAT: The nose is without any evidence of any deformity. Mucous membranes are moist tongue is midline NECK: The neck is nontender and supple. RESPIRATORY: Normal respiratory effort is noted there is no evidence of wheezing rhonchi or rales CARDIOVASCULAR: Regular rate and rhythm noted there no murmurs rubs or gallops normal S1 normal S2 GASTROINTESTINAL: The abdomen is soft. There is diffuse tenderness to palpation. Tenderness is severe and appears to be worse in the epigastric region. : Uncircumcised male genitalia noted. Recent vasectomy scar noted. No testicular tenderness appreciated. Ecchymosis noted over the scrotum. Testicles were descended bilaterally. MUSCULOSKELETAL/EXTREMITIES: There is no evidence of gross deformity full range of motion is noted in the hips and shoulders SKIN: Cool and diaphoretic. NEUROLOGIC: Patient is awake alert and oriented x3 strength is symmetric patellar reflexes are 2+ bilaterally Medical Decision & Procedures ER Provider Diagnostic Interpretation: Radiology results as stated below per my review and radiologist interpretation: CT SCAN OF THE ABDOMEN AND PELVIS WITHOUT IV CONTRAST CLINICAL HISTORY: Vomiting. Generalized abdominal pain. COMPARISON STUDY: Abdominal CT dated 09/09/2013. TECHNIQUE: CT scan of the abdomen and pelvis is performed from the lung bases to the proximal femora. Images are reviewed in the axial, sagittal, and coronal planes. IV contrast was not administered for this examination as per the referring clinician. Note that the examination was performed in suboptimal fashion without oral and IV contrast. A dose lowering technique was utilized adhering to the principles of ALARA. CT DOSE: 305.68 mGy.cm FINDINGS: Lung bases: The heart is normal in size and without pericardial effusion. The lung bases are clear noting foci of bibasilar scarring/atelectasis. Liver: The unenhanced liver is normal in size, contour, and attenuation. There is no intrahepatic biliary ductal dilatation. Gallbladder: Unremarkable. Spleen: Normal in size and attenuation. Pancreas: Unremarkable. Adrenal glands: Unremarkable. Kidneys: The unenhanced kidneys are normal in size and without hydronephrosis. There are at least 3 small nonobstructing left renal calculi which measure up to 5 mm. There are least 2 small nonobstructing calculi in the lower pole of the left kidney. A slightly hyperdense cyst in the lower pole the right kidney measuring up to 7 mm has not significant changed dating back to 2012. This is of doubtful significance.. Abdominal vasculature: The abdominal aorta is normal in course and caliber. Bowel: A 1.7 cm lipoma is incidentally noted in the stomach on image #101. No bowel obstruction is seen. The appendix is well-visualized and normal. Peritoneum: There is no intraperitoneal free air or abdominal ascites. Lymphadenopathy: None. Pelvic viscera: The bladder, prostate, and seminal vesicles are normal as visualized. Surgical clips are seen along the spermatic cord bilaterally. Skeletal structures: No lytic or blastic lesions are seen. IMPRESSION: 1. Suboptimal examination without oral and IV contrast 2. There are no acute infectious or inflammatory findings in the abdomen or pelvis. 3. Small bilateral nonobstructing renal calculi. Electronically signed by: David Reaves M.D. 02/02/2018 12:05 PM Dictated Date/Time: 02/02/2018 11:57 AM ULTRASOUND TESTES AND SCROTUM CLINICAL HISTORY: Scrotal swelling. Recent vasectomy. COMPARISON STUDY: Scrotal ultrasound dated 11/06/2010. TECHNIQUE: Real-time, grayscale, and color Doppler sonography of the testes and scrotum is performed. Images are reviewed in the transverse and longitudinal planes. FINDINGS: The testes are normal in size and homogeneous in echotexture. The right testis measures 5.7 x 2.5 x 2.9 cm and the left testis measures 5.7 x 2.3 x 3.2 cm. No intratesticular mass is seen. Testicular blood flow is normal and symmetric. Normal Doppler waveforms are identified in both testes. The epididymal heads are normal in appearance. The right epididymal head measures 1.0 cm in length and the left epididymal head measures 0.9 cm in length. A 3 mm epididymal head cyst is noted on the left. No varicocele or hydrocele is seen. IMPRESSION: Unremarkable sonographic assessment of the testes and scrotum. Electronically signed by: David Reaves M.D. 02/02/2018 12:11 PM Dictated Date/Time: 02/02/2018 12:09 PM Laboratory Results 02/02/18 11:00 Red Blood Count 4.90, Mean Corpuscular Volume 86.1, Mean Corpuscular Hemoglobin 30.6, Mean Corpuscular Hemoglobin Concent 35.5, Mean Platelet Volume 10.1, Neutrophils (%) (Auto) 77.6, Lymphocytes (%) (Auto) 13.6, Monocytes (%) (Auto) 5.9, Eosinophils (%) (Auto) 2.0, Basophils (%) (Auto) 0.5, Neutrophils # (Auto) 11.76, Lymphocytes # (Auto) 2.07, Monocytes # (Auto) 0.89, Eosinophils # (Auto) 0.31, Basophils # (Auto) 0.08 02/02/18 11:00 Test 02/02/18 11:00 02/02/18 12:15 White Blood Count 15.17 K/uL (4.8-10.8) Red Blood Count 4.90 M/uL (4.7-6.1) Hemoglobin 15.0 g/dL (14.0-18.0) Hematocrit 42.2 % (42-52) Mean Corpuscular Volume 86.1 fL (80-100) Mean Corpuscular Hemoglobin 30.6 pg (25-34) Mean Corpuscular Hemoglobin Concent 35.5 g/dl (32-36) Platelet Count 299 K/uL (130-400) Mean Platelet Volume 10.1 fL (7.4-10.4) Neutrophils (%) (Auto) 77.6 % Lymphocytes (%) (Auto) 13.6 % Monocytes (%) (Auto) 5.9 % Eosinophils (%) (Auto) 2.0 % Basophils (%) (Auto) 0.5 % Neutrophils # (Auto) 11.76 K/uL (1.4-6.5) Lymphocytes # (Auto) 2.07 K/uL (1.2-3.4) Monocytes # (Auto) 0.89 K/uL (0.11-0.59) Eosinophils # (Auto) 0.31 K/uL (0-0.5) Basophils # (Auto) 0.08 K/uL (0-0.2) RDW Standard Deviation 39.0 fL (36.4-46.3) RDW Coefficient of Variation 12.3 % (11.5-14.5) Immature Granulocyte % (Auto) 0.4 % Immature Granulocyte # (Auto) 0.06 K/uL (0.00-0.02) Anion Gap 5.0 mmol/L (3-11) Est Creatinine Clear Calc Drug Dose 116.8 ml/min Estimated GFR () 125.3 Estimated GFR (Non- 108.1 BUN/Creatinine Ratio 9.4 (10-20) Calcium Level 9.0 mg/dl (8.5-10.1) Total Bilirubin 0.6 mg/dl (0.2-1) Direct Bilirubin 0.1 mg/dl (0-0.2) Aspartate Amino Transf (AST/SGOT) 10 U/L (15-37) Alanine Aminotransferase (ALT/SGPT) 16 U/L (12-78) Alkaline Phosphatase 79 U/L (45-117) Total Protein 6.7 gm/dl (6.4-8.2) Albumin 3.4 gm/dl (3.4-5.0) Lipase 108 U/L (73-393) Urine Color YELLOW Urine Appearance CLEAR (CLEAR) Urine pH 7.5 (4.5-7.5) Urine Specific [place] 1.014 (1.000-1.030) Urine Protein NEG (NEG) Urine Glucose (UA) NEG (NEG) Urine Ketones NEG (NEG) Urine Occult Blood NEG (NEG) Urine Nitrite NEG (NEG) Urine Bilirubin NEG (NEG) Urine Urobilinogen NEG (NEG) Urine Leukocyte Esterase NEG (NEG) Laboratory results per my review. Medications Administered Medications (Trade) Dose Ordered Sig/Anthony Route Start Time Stop Time Status Last Admin Dose Admin Sodium Chloride 1,000 ml @ 999 mls/hr Q1H1M STAT IV 02/02/18 11:10 02/02/18 12:10 DC 02/02/18 11:18 999 MLS/HR Ondansetron HCl (Zofran Inj) 4 mg NOW STAT IV 02/02/18 11:10 02/02/18 11:12 DC 02/02/18 11:18 4 MG Fentanyl Citrate (Fentanyl Inj) 100 mcg Q15M PRN IV 02/02/18 11:15 02/02/18 13:27 DC 02/02/18 11:34 100 MCG ED Course 1059: The patient was evaluated in room C3. A complete history and physical examination were performed. 1110: Zofran 4mg IV, NSS 1,000 ml @ 999 mls/hr IV 1115: Fentanyl Citrate 100mcg IV 1253: Upon reevaluation, the patient is doing well. I discussed the results and treatment plan with him. He verbalized agreement of the treatment plan. He was discharged home. Medical Decision Differential diagnosis: Etiologies such as appendicitis, diverticulitis, PUD, biliary pathology, UTI, pancreatitis, obstruction, mesenteric ischemia, aortic pathology, infections, inflammatory bowel disease, renal colic, as well as others were entertained. Nursing notes reviewed. The patient is a 32-year-old male who presented to the emergency department for an evaluation of abdominal pain and nausea vomiting. The patient recently had a vasectomy. He did not have a definite exam consistent with torsion but he has some swelling and ecchymosis which is expected after this procedure. Testicular exam did not reveal significant tenderness but an ultrasound was obtained as well as a CAT scan of the abdomen and pelvis. I discussed patient' s laboratory and radiographic studies with him. He was treated with IV fluids IV pain medicine and IV anti-medics. On subsequent reevaluation he was resting comfortably. He was encouraged to follow-up with his primary care physician and continue all medications as prescribed. Otherwise I recommended that he return to the emergency department immediately if symptoms change worsen or the need arises. [place] Drug Monitoring Program Search Results: patient reviewed within database, no issues identified Medication Reconcilliation Current Medication List: was personally reviewed by me Blood Pressure Screening Patient's blood pressure: Normal blood pressure Impression Primary Impression: Abdominal pain Additional Impressions: Nausea & vomiting Post-op pain Scribe Attestation The scribe's documentation has been prepared under my direction and personally reviewed by me in its entirety. I confirm that the note above accurately reflects all work, treatment, procedures, and medical decision making performed by me. Departure Information Dispostion Home / Self-Care Prescriptions Ondasetron Odt (ZOFRAN ODT) 4 Mg Tab 4 MG SL Q6H for Nausea, #15 TAB Prov: Andrew Hagan, DO 02/02/18 Referrals No Doctor, Assigned (PCP) Forms Call Back Authorization, HOME CARE DOCUMENTATION FORM, IMPORTANT VISIT INFORMATION, Work Instructions Patient Instructions ED Nausea Vomiting, My [facility], Post Op Pain Manage Home Meds Additional Instructions Continue all medications as prescribed. Drink plenty clear liquids. Call your family doctor in morning to schedule a follow-up appointment. Return to the emergency department if symptoms worsen or if the need arises. Problem Qualifiers Primary Impression: Abdominal pain Abdominal location: upper abdomen, unspecified Qualified Codes: R10.10 - Upper abdominal pain, unspecified Additional Impressions: Nausea & vomiting Vomiting type: unspecified Vomiting Intractability: non-intractable Qualified Codes: R11.2 - Nausea with vomiting, unspecified
[2018-02-02] MEDS: FENTANYL CITRATE INJ 50 MCG/1 ML 2 ML VIAL IV PRN ×2 (11:18→11:34)
[2018-02-02 11:20] LABS: BASO % 0.5 %; BASO ABS # 0.08 K/uL (0-0.2); EOS ABS # 0.31 K/uL (0-0.5); HEMATOCRIT 42.2 % (42-52); IG# 0.06 K/uL (0.00-0.02); LYMPH % 13.6 %; LYMPH ABS # 2.07 K/uL (1.2-3.4); MEAN CELL VOLUME 86.1 fL (80-100); MEAN CORPUSCULAR HEMOGLOBIN 30.6 pg (25-34); MEAN CORPUSCULAR HGB CONC 35.5 g/dl (32-36); MEAN PLATELET VOLUME 10.1 fL (7.4-10.4); MONO % 5.9 %; MONO ABS # 0.89 K/uL (0.11-0.59); NEUT % 77.6 %; NEUT ABS # 11.76 K/uL (1.4-6.5); PLATELET COUNT 299 K/uL (130-400); RED CELL DISTRIBUTION WIDTH CV 12.3 % (11.5-14.5); WHITE BLOOD COUNT 15.17 K/uL (4.8-10.8)
[2018-02-02 11:42] LABS: ALBUMIN 3.4 gm/dl (3.4-5.0); CREATININE 0.92 mg/dl (0.60-1.40); POTASSIUM 3.5 mmol/L (3.5-5.1)
[2018-02-02 11:44] LABS: TOTAL PROTEIN 6.7 gm/dl (6.4-8.2)
--- NOTE | 2018-02-02 12:06 | DIAGNOSTIC IMAGING REPORT ---
CT SCAN OF THE ABDOMEN AND PELVIS WITHOUT IV CONTRAST CLINICAL HISTORY: Vomiting. Generalized abdominal pain. COMPARISON STUDY: Abdominal CT dated 09/09/2013. TECHNIQUE: CT scan of the abdomen and pelvis is performed from the lung bases to the proximal femora. Images are reviewed in the axial, sagittal, and coronal planes. IV contrast was not administered for this examination as per the referring clinician. Note that the examination was performed in suboptimal fashion without oral and IV contrast. A dose lowering technique was utilized adhering to the principles of ALARA. CT DOSE: 305.68 mGy.cm FINDINGS: Lung bases: The heart is normal in size and without pericardial effusion. The lung bases are clear noting foci of bibasilar scarring/atelectasis. Liver: The unenhanced liver is normal in size, contour, and attenuation. There is no intrahepatic biliary ductal dilatation. Gallbladder: Unremarkable. Spleen: Normal in size and attenuation. Pancreas: Unremarkable. Adrenal glands: Unremarkable. Kidneys: The unenhanced kidneys are normal in size and without hydronephrosis. There are at least 3 small nonobstructing left renal calculi which measure up to 5 mm. There are least 2 small nonobstructing calculi in the lower pole of the left kidney. A slightly hyperdense cyst in the lower pole the right kidney measuring up to 7 mm has not significant changed dating back to 2012. This is of doubtful significance.. Abdominal vasculature: The abdominal aorta is normal in course and caliber. Bowel: A 1.7 cm lipoma is incidentally noted in the stomach on image #101. No bowel obstruction is seen. The appendix is well-visualized and normal. Peritoneum: There is no intraperitoneal free air or abdominal ascites. Lymphadenopathy: None. Pelvic viscera: The bladder, prostate, and seminal vesicles are normal as visualized. Surgical clips are seen along the spermatic cord bilaterally. Skeletal structures: No lytic or blastic lesions are seen. IMPRESSION: 1. Suboptimal examination without oral and IV contrast 2. There are no acute infectious or inflammatory findings in the abdomen or pelvis. 3. Small bilateral nonobstructing renal calculi. Electronically signed by: David Reaves M.D. 02/02/2018 12:05 PM Dictated Date/Time: 02/02/2018 11:57 AM
--- NOTE | 2018-02-02 12:12 | DIAGNOSTIC IMAGING REPORT ---
ULTRASOUND TESTES AND SCROTUM CLINICAL HISTORY: Scrotal swelling. Recent vasectomy. COMPARISON STUDY: Scrotal ultrasound dated 11/06/2010. TECHNIQUE: Real-time, grayscale, and color Doppler sonography of the testes and scrotum is performed. Images are reviewed in the transverse and longitudinal planes. FINDINGS: The testes are normal in size and homogeneous in echotexture. The right testis measures 5.7 x 2.5 x 2.9 cm and the left testis measures 5.7 x 2.3 x 3.2 cm. No intratesticular mass is seen. Testicular blood flow is normal and symmetric. Normal Doppler waveforms are identified in both testes. The epididymal heads are normal in appearance. The right epididymal head measures 1.0 cm in length and the left epididymal head measures 0.9 cm in length. A 3 mm epididymal head cyst is noted on the left. No varicocele or hydrocele is seen. IMPRESSION: Unremarkable sonographic assessment of the testes and scrotum. Electronically signed by: David Reaves M.D. 02/02/2018 12:11 PM Dictated Date/Time: 02/02/2018 12:09 PM
[2018-02-02 12:18] VITALS: TEMP 36.9
[2018-02-02] MEDS ORDERED: ONDA4TAB10 SL (12:52)
[2018-02-02 13:01] VITALS: BP 96/81; PULSE 60; O2SAT 97
[2018-02-05] MEDS ORDERED: IBUP-1050 PO (08:37)
[2018-02-05] MEDS ORDERED: OMEP40CA41 PO (08:37)
[2018-02-05] MEDS ORDERED: PROM12.57 PO (08:37)
== END 2018-02-02 13:09 | disposition home or self-care (01) ==
LOC: C.EDB 10:33 → C.EDC 13:09
DX: R10.10 Upper abdominal pain, unspecified (principal); R11.2 Nausea with vomiting, unspecified; G89.18 Other acute postprocedural pain; Z87.442 Personal history of urinary calculi; Z87.01 Personal history of pneumonia (recurrent); I10 Essential (primary) hypertension; Z80.9 Family history of malignant neoplasm, unspecified; Z83.79 Family history of other diseases of the digestive system; Z84.1 Family history of disorders of kidney and ureter; Z83.6 Family history of other diseases of the respiratory system; F17.210 Nicotine dependence, cigarettes, uncomplicated; Z88.5 Allergy status to narcotic agent; Z88.1 Allergy status to other antibiotic agents; Z88.8 Allergy status to other drugs, medicaments and biological substances

== ENCOUNTER 2018-02-04 10:37 | Emergency (ER) | payer BC ==
[2018-02-04 10:39] VITALS: TEMP 37.2; Ht 177.8 cm
[2018-02-04] MEDS ORDERED: PROMETHAZINE HCL INJ 12.5 MG in SODIUM CHLORIDE 0.9% 50ML 50 ML IV STA (11:13)
[2018-02-04] MEDS ORDERED: SODIUM CHLORIDE 0.9% 1000ML 1,000 ML IV STA (11:13)
[2018-02-04] MEDS ORDERED: FENTANYL CITRATE INJ 50 MCG/1 ML 2 ML VIAL IV ONE (11:15)
[2018-02-04 12:01] LABS: BASO % 0.1 %; BASO ABS # 0.01 K/uL (0-0.2); EOS % 0.1 %; EOS ABS # 0.01 K/uL (0-0.5); HEMATOCRIT 41.3 % (42-52); HEMOGLOBIN 14.7 g/dL (14.0-18.0); IG# 0.04 K/uL (0.00-0.02); LYMPH % 9.2 %; MEAN CELL VOLUME 86.6 fL (80-100); MEAN CORPUSCULAR HEMOGLOBIN 30.8 pg (25-34); MEAN CORPUSCULAR HGB CONC 35.6 g/dl (32-36); MEAN PLATELET VOLUME 10.7 fL (7.4-10.4); MONO % 2.6 %; MONO ABS # 0.34 K/uL (0.11-0.59); NEUT % 87.7 %; PLATELET COUNT 301 K/uL (130-400); RED CELL DISTRIBUTION WIDTH CV 12.2 % (11.5-14.5)
--- NOTE | 2018-02-04 12:07 | DIAGNOSTIC IMAGING REPORT ---
ABDOMEN 2VIEW W/PA CHEST RTN HISTORY: 32 years-old Male upper abdominal pain, vomiting acute upper abdominal pain with vomiting COMPARISON: Acute abdominal series radiographs 10/15/2017, CT abdomen and pelvis 02/02/2018 TECHNIQUE: PA view of the chest with erect and supine views of the abdomen. FINDINGS: Cardiac mediastinal and hilar silhouettes are within normal limits. No pneumothorax, pleural effusion, focal airspace consolidation or overt pulmonary edema. The bones of the chest appear grossly intact. No pneumoperitoneum or pneumatosis. Bowel gas pattern is nonobstructive. Renal shadows are partially obscured by bowel gas. The previously described right nephrolithiasis are not appreciated on this study. No ureteral calculi. Left-sided nephrolithiasis redemonstrated. No fracture. IMPRESSION: 1. No acute processes of the chest. 2. Nonobstructive bowel gas pattern without pneumoperitoneum. 3. Nephrolithiasis. The above report was generated using voice recognition software. It may contain grammatical, syntax or spelling errors. Electronically signed by: Nathan Jovel M.D. 02/04/2018 12:05 PM Dictated Date/Time: 02/04/2018 12:03 PM
[2018-02-04 12:12] LABS: ALBUMIN 3.8 gm/dl (3.4-5.0); ALT/SGPT 21 U/L (12-78); AST/SGOT 8 U/L (15-37); BLOOD UREA NITROGEN 11 mg/dl (7-18); CALCIUM 8.9 mg/dl (8.5-10.1); CARBON DIOXIDE 25 mmol/L (21-32); CREATININE 0.89 mg/dl (0.60-1.40); GLUCOSE 120 mg/dl (70-99); LIPASE 102 U/L (73-393); POTASSIUM 3.1 mmol/L (3.5-5.1); SODIUM 140 mmol/L (136-145)
[2018-02-04 12:15] LABS: ALKALINE PHOSPHATASE 75 U/L (45-117); TOTAL PROTEIN 7.1 gm/dl (6.4-8.2)
[2018-02-04] MEDS ORDERED: GI COCKTAIL PO STA (12:35)
[2018-02-04] MEDS ORDERED: ONDANSETRON INJ 2 MG/ML 2 ML VIAL IV STA (12:35)
--- NOTE | 2018-02-04 12:35 | EMERGENCY ROOM VISIT NOTE ---
History First contact with patient: 11:02 Chief Complaint: VOMITING Stated Complaint: STOMACH PAIN, VOMITTING Nursing Triage Summary: pt reports bilat abd pain started on saturday was seen here for same thing.. nauseated has been vomiting all morning. History of Present Illness The patient is a 32 year old male who presents to the Emergency Room with complaints of abdominal pain and vomiting. The patient states that he has had persistent vomiting for the past 2 days. He was seen here 2 days ago and states that he was feeling better at the time of discharge until about 12 hours later. He has been trying to use Zofran without relief. He reports pain in his upper abdomen which he describes as a burning sensation. He rates his discomfort a 10/10. He denies any diarrhea but feels he may be constipated. He was able to eat a little yesterday but overall has had a decreased appetite. He denies any testicular pain. He denies fevers, chest pain, shortness of breath or urinary symptoms. He reports a history of lithotripsy for kidney stones but denies any other history of abdominal surgeries. He denies any drug use. Review of Systems A complete 10 point review of systems was reviewed with the patient with pertinent positives and negatives as per history of present illness. All else were negative. Past Medical/Surgical History Medical Problems: (1) Bronchitis (2) Hypertension (3) Kidney stone (4) Pneumonia (5) Polyp of gallbladder Family History Cancer FHx: gallbladder disease Hypertension Kidney disease Kidney stones Lung disease Social History Smoking Status: Current Every Day Smoker Alcohol Use: none Marital Status: Housing Status: lives with significant other Occupation Status: employed Current/Historical Medications Scheduled Methadone Hcl (Methadone Hcl), 37 MG PO QAM Omeprazole (Prilosec), 40 MG PO DAILY Ondasetron Odt (Zofran Odt), 4 MG SL Q6H Ondasetron Odt (Zofran Odt), 4 MG SL Q6H Scheduled PRN Promethazine (Phenergan ), 1-2 TABS PO Q8 PRN for Nausea or Vomiting Physical Exam Vital Signs Date Time Temp Pulse Resp B/P (MAP) Pulse Ox O2 Delivery O2 Flow Rate FiO2 02/04/18 15:12 81 16 131/88 98 Room Air 02/04/18 14:35 59 14 103/70 02/04/18 12:30 60 20 117/79 99 Room Air 02/04/18 10:39 37.2 92 18 148/96 98 Room Air Physical Exam VITALS: Vitals are noted on the nurse's note and reviewed by myself. Vital signs stable. GENERAL: This is a 32-year-old male, in no acute distress, nondiaphoretic, well- developed well-nourished. SKIN: The skin was without rashes. EARS: External auditory canals clear, tympanic membranes pearly hoff without erythema or effusion bilaterally. EYES: Pupils equal round and reactive to light and accommodation. MOUTH: Mucous membranes slightly dry. HEART: Regular rate and rhythm without murmurs gallops or rubs. LUNGS: Clear to auscultation bilaterally without wheezes, rales or rhonchi. ABDOMEN: Positive bowel sounds x 4. Soft, nondistended. There is diffuse tenderness to exam with more significant tenderness in the epigastric region and left upper quadrant. No guarding or rebound tenderness. NEURO: Patient was alert and oriented to person place and time. Medical Decision & Procedures ER Provider Diagnostic Interpretation: ABDOMEN 2VIEW W/PA CHEST RTN FINDINGS: Cardiac mediastinal and hilar silhouettes are within normal limits. No pneumothorax, pleural effusion, focal airspace consolidation or overt pulmonary edema. The bones of the chest appear grossly intact. No pneumoperitoneum or pneumatosis. Bowel gas pattern is nonobstructive. Renal shadows are partially obscured by bowel gas. The previously described right nephrolithiasis are not appreciated on this study. No ureteral calculi. Left-sided nephrolithiasis redemonstrated. No fracture. IMPRESSION: 1. No acute processes of the chest. 2. Nonobstructive bowel gas pattern without pneumoperitoneum. 3. Nephrolithiasis. ULTRASOUND RIGHT UPPER QUADRANT ABDOMEN IMPRESSION: 1. There is biliary sludge, with no shadowing gallstones are identified. The gallbladder is decompressed and otherwise normal in in appearance. Although a sonographic Cano's sign is reportedly present, there is no convincing sonographic evidence of acute cholecystitis. If further assessment is desired a nuclear hepatobiliary scan would be appropriate. 2. The pancreas was not visualized due to overlying bowel gas. Laboratory Results 02/04/18 11:20 Red Blood Count 4.77, Mean Corpuscular Volume 86.6, Mean Corpuscular Hemoglobin 30.8, Mean Corpuscular Hemoglobin Concent 35.6, Mean Platelet Volume 10.7, Neutrophils (%) (Auto) 87.7, Lymphocytes (%) (Auto) 9.2, Monocytes (%) (Auto) 2.6, Eosinophils (%) (Auto) 0.1, Basophils (%) (Auto) 0.1, Neutrophils # (Auto) 11.40, Lymphocytes # (Auto) 1.20, Monocytes # (Auto) 0.34, Eosinophils # (Auto) 0.01, Basophils # (Auto) 0.01 02/04/18 11:20 Test 02/04/18 11:20 02/04/18 14:10 White Blood Count 13.00 K/uL (4.8-10.8) Red Blood Count 4.77 M/uL (4.7-6.1) Hemoglobin 14.7 g/dL (14.0-18.0) Hematocrit 41.3 % (42-52) Mean Corpuscular Volume 86.6 fL (80-100) Mean Corpuscular Hemoglobin 30.8 pg (25-34) Mean Corpuscular Hemoglobin Concent 35.6 g/dl (32-36) Platelet Count 301 K/uL (130-400) Mean Platelet Volume 10.7 fL (7.4-10.4) Neutrophils (%) (Auto) 87.7 % Lymphocytes (%) (Auto) 9.2 % Monocytes (%) (Auto) 2.6 % Eosinophils (%) (Auto) 0.1 % Basophils (%) (Auto) 0.1 % Neutrophils # (Auto) 11.40 K/uL (1.4-6.5) Lymphocytes # (Auto) 1.20 K/uL (1.2-3.4) Monocytes # (Auto) 0.34 K/uL (0.11-0.59) Eosinophils # (Auto) 0.01 K/uL (0-0.5) Basophils # (Auto) 0.01 K/uL (0-0.2) RDW Standard Deviation 39.0 fL (36.4-46.3) RDW Coefficient of Variation 12.2 % (11.5-14.5) Immature Granulocyte % (Auto) 0.3 % Immature Granulocyte # (Auto) 0.04 K/uL (0.00-0.02) Anion Gap 8.0 mmol/L (3-11) Estimated GFR () 129.3 Estimated GFR (Non- 111.6 BUN/Creatinine Ratio 11.8 (10-20) Calcium Level 8.9 mg/dl (8.5-10.1) Total Bilirubin 1.0 mg/dl (0.2-1) Aspartate Amino Transf (AST/SGOT) 8 U/L (15-37) Alanine Aminotransferase (ALT/SGPT) 21 U/L (12-78) Alkaline Phosphatase 75 U/L (45-117) Total Protein 7.1 gm/dl (6.4-8.2) Albumin 3.8 gm/dl (3.4-5.0) Globulin 3.3 gm/dl (2.5-4.0) Albumin/Globulin Ratio 1.2 (0.9-2) Lipase 102 U/L (73-393) Urine Color YELLOW Urine Appearance CLEAR (CLEAR) Urine pH 7.5 (4.5-7.5) Urine Specific [place] 1.005 (1.000-1.030) Urine Protein NEG (NEG) Urine Glucose (UA) NEG (NEG) Urine Ketones NEG (NEG) Urine Occult Blood NEG (NEG) Urine Nitrite NEG (NEG) Urine Bilirubin NEG (NEG) Urine Urobilinogen NEG (NEG) Urine Leukocyte Esterase NEG (NEG) Urine Opiates Screen NEG (NEG) Urine Methadone, Qualitative POS (NEG) Urine Barbiturates NEG (NEG) Urine Phencyclidine (PCP) Level NEG (NEG) Ur Amphetamine/Methamphetamine NEG (NEG) MDMA (Ecstasy) Screen NEG (NEG) Urine Benzodiazepines Screen NEG (NEG) Urine Cocaine Metabolite NEG (NEG) Urine Marijuana (THC) POS (NEG) Medications Administered Medications (Trade) Dose Ordered Sig/Anthony Route Start Time Stop Time Status Last Admin Dose Admin Sodium Chloride 1,000 ml @ 999 mls/hr Q1H1M STAT IV 02/04/18 11:13 02/04/18 12:13 DC 02/04/18 11:34 999 MLS/HR Fentanyl Citrate (Fentanyl Inj) 50 mcg NOW ONCE IV 02/04/18 11:15 02/04/18 11:16 DC 02/04/18 11:34 50 MCG Promethazine HCl 12.5 mg/Sodium Chloride 50.5 ml @ 204 mls/hr NOW STAT IV 02/04/18 11:13 02/04/18 11:27 DC 02/04/18 11:33 204 MLS/HR Ondansetron HCl (Zofran Inj) 4 mg NOW STAT IV 02/04/18 12:35 02/04/18 12:36 DC 02/04/18 13:02 4 MG Miscellaneous Medication (Gi Cocktail) 24 ml NOW STAT PO 02/04/18 12:35 02/04/18 12:36 DC 02/04/18 13:02 24 ML Potassium Chloride (Klor-Con M10) 40 meq NOW STAT PO 02/04/18 15:27 02/04/18 15:28 DC 02/04/18 15:29 40 MEQ ED Course The patient was evaluated as above. Labs were drawn and IV access was obtained. Patient was medicated with 1 L normal saline solution, 12.5 mg Phenergan and 50 mcg fentanyl. Patient was reevaluated and stated that he was feeling slightly better, however complained that his "belly was burning." A GI cocktail and dose of Zofran were ordered for the patient. The case was discussed with STEFAN Pruitt with gastroenterology. She and Dr. Henson evaluated the patient in the ED and felt that as long as he was able to tolerate PO fluids, he could be discharged home with an outpatient follow up scheduled this week. Patient was evaluated and was able to tolerate 1/2 of a powerade with no problems. Discharge instructions were reviewed with the patient. The patient verbalized understanding of my assessment and treatment plan and was discharged home in good condition. Medical Decision Differential diagnosis includes cholecystitis, pancreatitis, gastroenteritis, cyclical vomiting syndrome, gastritis, appendicitis, among others. The patient is a 32-year-old male who presents today complaining of persistent vomiting and upper abdominal pain. I did review records from patient's previous ED visit on 02/02/18. At that time, he had full workup including laboratory testing and noncontrast CT of the abdomen and pelvis. CT showed no acute findings. He additionally had an ultrasound of his testicles due to the recent vasectomy which was unremarkable. Labs revealed mild leukocytosis of 13,000, decreased from his previous visit. Glucose slightly elevated at 120 likely secondary to stress. Patient is slightly hypokalemic with potassium of 3.1, likely secondary to vomiting. He was given 40 mEq of potassium orally. LFTs were unremarkable. Kidney function was within normal limits. Abdominal series was performed and was unremarkable. Gallbladder ultrasound showed some sludge but no evidence of cholecystitis. Gastroenterology was consulted. They will schedule the patient for outpatient endoscopy. Patient felt much better after the above treatment and was able to tolerate fluids by mouth. He will be discharged with a prescription for Phenergan. He will also be placed on a PPI. Based on the patient's presentation and work up, I feel the patient is stable for outpatient treatment. The patient was educated to return to the emergency department for any worsening of their current condition or new/concerning symptoms. He will follow up with gastroenterology. The patient's case was reviewed with Dr. Ansari, ED attending physician, who agreed with my assessment and treatment plan. Medication Reconcilliation Current Medication List: was personally reviewed by me Blood Pressure Screening Patient's blood pressure: Normal blood pressure Impression Primary Impression: Epigastric abdominal pain Additional Impression: Vomiting Departure Information Dispostion Home / Self-Care Condition GOOD Prescriptions Ondasetron Odt (ZOFRAN ODT) 4 Mg Tab 4 MG SL Q6H for Nausea, #15 TAB Prov: Graciela Washington PA-C 02/04/18 Omeprazole (PRILOSEC) 40 Mg Cap 40 MG PO DAILY for 14 Days, #14 CAP Prov: Graciela Washington PA-C 02/04/18 Promethazine (Phenergan ) 12.5 Mg Tab 1-2 TABS PO Q8 Y for Nausea or Vomiting, #15 TAB Prov: Graciela Washington PA-C 02/04/18 Referrals Shola Tillman M.D. (PCP) Brisa Wong .STEFAN Patient Instructions [facility] Additional Instructions You have been prescribed Phenergan to be used for any nausea or vomiting. Take as prescribed. For pain control, you can use the following [id number] medicines (if >12 yo): - Regular strength (325mg/tab) Tylenol (acetaminophen) 2 tabs every 4-6 hours as needed. Do not exceed 12 tablets in a 24 hour period. Avoid taking more than 4 grams (4000 mg) of Tylenol per day. This includes any other sources of acetaminophen you may take on a regular basis. You were prescribed omeprazole daily as prescribed. Take this medication in the morning before you have anything to eat. This will help to decrease acid production. Follow-up with gastroenterology this week. Contact them tomorrow if you do not hear from them regarding an appointment. As with any visit to the emergency department, you should follow-up with your primary care provider. Your potassium level was found to be slightly low today, likely due to your vomiting. You were given oral potassium replacement. Try to increase potassium in your everyday diet. You may take [id number] medications like Maalox or Tums for symptomatic relief. Return to the emergency department with worsening pain/vomiting, fevers or other new/concerning symptoms. Problem Qualifiers Additional Impression: Vomiting Vomiting type: unspecified Vomiting Intractability: non-intractable Nausea presence: with nausea Qualified Codes: R11.2 - Nausea with vomiting, unspecified
[2018-02-04] MEDS ORDERED: FENTANYL CITRATE INJ 50 MCG/1 ML 2 ML VIAL IV STA (12:43)
[2018-02-04] MEDS ORDERED: LIDOCAINE HCL 2% VISC SOLN 20 ML UDC ONE (12:58)
[2018-02-04] MEDS ORDERED: ALUMINUM/MAGNESIUM SUSP 30 ML UDC ONE (12:58)
[2018-02-04] MEDS ORDERED: POTASSIUM CHLORIDE 20 MEQ TABCR PO STA (13:15)
--- NOTE | 2018-02-04 13:28 | DIAGNOSTIC IMAGING REPORT ---
ULTRASOUND RIGHT UPPER QUADRANT ABDOMEN CLINICAL HISTORY: Epigastric abdominal pain. Vomiting. COMPARISON STUDY: Abdominal CT dated 02/02/2018 TECHNIQUE: Real-time, grayscale, and color flow sonography of the right upper quadrant of the abdomen was performed. Images are reviewed in the transverse and longitudinal planes. FINDINGS: Liver: The liver is normal in size and echotexture. There is no intrahepatic biliary ductal dilatation. The main portal vein is patent. Gallbladder: Minimal biliary sludge is noted. The gallbladder is otherwise normal in appearance. No shadowing gallstones are identified. There is no gallbladder wall thickening or pericholecystic fluid. A sonographic Cano's sign is reportedly present. The common bile duct measures up to 0.5 cm in diameter. Pancreas: Not well visualized due to overlying bowel gas. Right kidney: Survey images of the right kidney demonstrate normal size and echotexture. There is no hydronephrosis. Ascites: None. IMPRESSION: 1. There is biliary sludge, with no shadowing gallstones are identified. The gallbladder is decompressed and otherwise normal in in appearance. Although a sonographic Cano's sign is reportedly present, there is no convincing sonographic evidence of acute cholecystitis. If further assessment is desired a nuclear hepatobiliary scan would be appropriate. 2. The pancreas was not visualized due to overlying bowel gas. Electronically signed by: David Reaves M.D. 02/04/2018 1:26 PM Dictated Date/Time: 02/04/2018 1:23 PM
[2018-02-04] MEDS ORDERED: PROM12.57 PO (14:36)
--- NOTE | 2018-02-04 15:02 | Gastrointestinal Consultation ---
Gastrointestinal Consultation Date of Consultation: Feb 04, 2018 Attending Physician: Padmini Consulting Physician: Natividad Reason for Consultation: abd pain, nausea, vomiting History of Present Illness Patient is a 32 year old male on methadone who is 6 days post op vasectomy who presented to [facility] x 2 with complaints of upper abdominal pain, nausea, vomiting. Pt was seen and evaluated, chart reviewed. Evaluated in c11 e/ Dr. Henson. Pt notes he was doing well post-op and was using advil, toradol and tylenol for pain. He suggests 10-12 tablets of toradol total and 24 tablets of advil total for his post operative pain. Was feeling well until Saturday morning. Woke up with upper abdominal pain. Intermittent. Burning, cramping and twisting in nature. No sharp stabbing pain. Unchanged w/ PO intake. Associated w / nausea and vomiting. No report of coffee ground emesis or hematemesis. Pain does not radiate to his back or RUQ. Has never had a pain like this before. No change in his bowels. Moves his bowels every other day, formed stool. No black or bloody stools. No fever, chills, CP, SOB. Friends at work are sick w/ viral gastroenteritis NSAIDS: advil TID, toradol TID ETOH: none Marijuana: daily RUQ US: There is biliary sludge, with no shadowing gallstones are identified. The gallbladder is decompressed and otherwise normal in in appearance. Although asonographic Cano's sign is reportedly present, there is no convincing sonographic evidence of acute cholecystitis. If further assessment is desired anuclear hepatobiliary scan would be appropriate. The pancreas was not visualized due to overlying bowel gas KUB: No acute processes of the chest.Nonobstructive bowel gas pattern without pneumoperitoneum. Nephrolithiasis. CT ABD/Pelvis: Suboptimal examination without oral and IV contrastThere are no acute infectious or inflammatory findings in the abdomen or pelvis. Small bilateral nonobstructing renal calculi EGD: none Colonoscopy: none Past Medical/Surgical History Medical Problems: (1) Abdominal pain Status: Acute (2) Abdominal pain Status: Acute (3) Nausea & vomiting Status: Acute (4) Post-op pain Status: Acute Past Medical History: HTN, chronic constipation, methadone use Past Surgical History: vasectomy Family History Cancer FHx: gallbladder disease Hypertension Kidney disease Kidney stones Lung disease Social History Smoking Status: Current Every Day Smoker Alcohol Use: none Marital Status: Housing Status: lives with significant other Occupation Status: employed Allergies Coded Allergies: Morphine (Verified Allergy, Intermediate, hives, 02/04/18) Ciprofloxacin (Verified Adverse Reaction, Unknown, REACTION WITH METHADONE , 02/04/18) Clarithromycin (Verified Adverse Reaction, Unknown, REACTION WITH METHADONE, 02/04/18) Erythromycin (Verified Adverse Reaction, Unknown, REACTION WITH METHADONE , 02/04/18) Tramadol (Verified Adverse Reaction, Unknown, REACTION WITH METHADONE, 02/04) Current Medications Home Meds and Scripts Medications Dose Route/Sig Max Daily Dose Days Date Category Phenergan (Promethazine HCl) 12.5 Mg Tab 1-2 Tabs PO Q8 PRN 02/04/18 Rx Zofran Odt (Ondansetron HCl) 4 Mg Tab 4 Mg SL Q6H 02/02/18 Rx Methadone Hcl 10 Mg/5 Ml Tata 37 Mg PO QAM 06/25/17 Reported Review of Systems Constitutional: No fever, No chills, No weight loss, No fatigue ENT: No trouble swallowing, No pain on swallowing Respiratory: No cough Cardiac: No chest pain, No edema, No palpitations Abdomen: + pain, + nausea, + vomiting, No diarrhea, No constipation, No GI bleeding Skin: No rash, No itch, No color change Physical Exam Date Time Temp Pulse Resp B/P (MAP) Pulse Ox O2 Delivery O2 Flow Rate FiO2 02/04/18 14:35 59 14 103/70 02/04/18 12:30 60 20 117/79 99 Room Air 02/04/18 10:39 37.2 92 18 148/96 98 Room Air General Appearance: no apparent distress Eyes: PERRL ENT: hearing grossly normal Neck: supple, trachea midline Respiratory/Chest: lungs clear, normal breath sounds, no respiratory distress, no accessory muscle use Cardiovascular: regular rate, rhythm, no edema, no gallop, no JVD Abdomen: normal bowel sounds, non tender, soft, no organomegaly Neurologic/Psych: alert, normal mood/affect, oriented x 3 Skin: normal color, no jaundice, warm/dry, no rash Laboratory Results Last 24 Hours Test 02/04/18 11:20 02/04/18 14:10 White Blood Count 13.00 K/uL Red Blood Count 4.77 M/uL Hemoglobin 14.7 g/dL Hematocrit 41.3 % Mean Corpuscular Volume 86.6 fL Mean Corpuscular Hemoglobin 30.8 pg Mean Corpuscular Hemoglobin Concent 35.6 g/dl Platelet Count 301 K/uL Mean Platelet Volume 10.7 fL Neutrophils (%) (Auto) 87.7 % Lymphocytes (%) (Auto) 9.2 % Monocytes (%) (Auto) 2.6 % Eosinophils (%) (Auto) 0.1 % Basophils (%) (Auto) 0.1 % Neutrophils # (Auto) 11.40 K/uL Lymphocytes # (Auto) 1.20 K/uL Monocytes # (Auto) 0.34 K/uL Eosinophils # (Auto) 0.01 K/uL Basophils # (Auto) 0.01 K/uL RDW Standard Deviation 39.0 fL RDW Coefficient of Variation 12.2 % Immature Granulocyte % (Auto) 0.3 % Immature Granulocyte # (Auto) 0.04 K/uL Sodium Level 140 mmol/L Potassium Level 3.1 mmol/L Chloride Level 107 mmol/L Carbon Dioxide Level 25 mmol/L Anion Gap 8.0 mmol/L Blood Urea Nitrogen 11 mg/dl Creatinine 0.89 mg/dl Estimated GFR () 129.3 Estimated GFR (Non- 111.6 BUN/Creatinine Ratio 11.8 Random Glucose 120 mg/dl Calcium Level 8.9 mg/dl Total Bilirubin 1.0 mg/dl Aspartate Amino Transf (AST/SGOT) 8 U/L Alanine Aminotransferase (ALT/SGPT) 21 U/L Alkaline Phosphatase 75 U/L Total Protein 7.1 gm/dl Albumin 3.8 gm/dl Globulin 3.3 gm/dl Albumin/Globulin Ratio 1.2 Lipase 102 U/L Urine Color YELLOW Urine Appearance CLEAR Urine pH 7.5 Urine Specific [place] 1.005 Urine Protein NEG Urine Glucose (UA) NEG Urine Ketones NEG Urine Occult Blood NEG Urine Nitrite NEG Urine Bilirubin NEG Urine Urobilinogen NEG Urine Leukocyte Esterase NEG Impression Patient is a 32 year old male 5 days post op vasectomy on TID tordaol and TID advil w/ epigastric abdominal pain, intermittent w/ nausea, vomiting, no coffee ground emesis or hematemesis. Moving his bowels daily without evidence of GIB. CT negative, RUQ US without gallstones or biliary obstruction. He does smoke marijuana daily. CV[facility] vs NSAID gastritis vs viral gastroenteritis Plan - Start PO challenge - If tolerates - omeprazole 20 mg daily - zofran PRN - call GI to arrange OP EGD /Saturday If pt is unable to tolerate PO challenge, please admit through [facility] hospitalist service Att add: I interviewed and examined pt, reviewed chart and labs. Pt with new onset of colicky abd pain, intractable n/v, shortly after using large doses of NSAIDs for the past 2-3 days. On methadone with 2 missed doses recently; chronic MJ use. W/u for biliary disease by ER physician. Suspect NSAID toxicity - jenny as above.
[2018-02-04] MEDS ORDERED: OMEP40CA41 PO (15:10)
[2018-02-04] MEDS ORDERED: ONDA4TAB10 SL (15:10)
[2018-02-04 15:12] VITALS: BP 131/88; PULSE 81; O2SAT 98
[2018-02-04] MEDS ORDERED: POTASSIUM CHLORIDE 10 MEQ TABCR PO STA (15:27)
[2018-02-05] MEDS ORDERED: OMEP40CA41 PO (08:37)
[2018-02-05] MEDS ORDERED: IBUP-1050 PO (08:37)
[2018-02-05] MEDS ORDERED: PROM12.57 PO (08:37)
== END 2018-02-04 15:30 | disposition home or self-care (01) ==
LOC: C.EDB 10:38 → C.EDC 15:30
DX: R10.13 Epigastric pain (principal); R11.2 Nausea with vomiting, unspecified; Z98.52 Vasectomy status; E87.6 Hypokalemia; F11.90 Opioid use, unspecified, uncomplicated; F12.90 Cannabis use, unspecified, uncomplicated; F17.200 Nicotine dependence, unspecified, uncomplicated; I10 Essential (primary) hypertension; K59.09 Other constipation; Z88.6 Allergy status to analgesic agent; Z88.1 Allergy status to other antibiotic agents; Z88.5 Allergy status to narcotic agent; Z80.9 Family history of malignant neoplasm, unspecified; Z83.79 Family history of other diseases of the digestive system; Z82.49 Family history of ischemic heart disease and other diseases of the circulatory system; Z84.1 Family history of disorders of kidney and ureter

== ENCOUNTER → 2018-02-06 | Day surgery (SDC) | payer BC ==
[2018-02-05 08:11] VITALS: BMI 23.0
[~2018-02-06] VITALS: Ht 177.8 cm; Wt 72.7 kg
[~2018-02-06] MED LIST changes: +IBUP-1050 PO; +LIDOCAINE HCL 2% 2 ML VIAL (20MG/ML) ONE; +OMEP40CA41 PO; -ONDA4TAB10 SL; +PROM12.57 PO; +PROPOFOL IV EMULSION 10 MG/ML 20 ML VIAL IV ONE
[2018-02-06 11:49] VITALS: TEMP 36.8; Ht 177.8 cm; Wt 72.7 kg
--- NOTE | 2018-02-06 12:30 | Endo History and Physical ---
History & Physical Date of Service: Feb 06, 2018. Chief Complaint: UPPER ABDOMINAL PAIN AND NAUSEA Referring Physician: DR MANJARREZ History of Present Illness Abd pain, NSAID abuse Past Surgical History Hx Cardiac Surgery: No Hx Internal Defibrillator: No Hx Pacemaker: No Hx Abdominal Surgery: No Hx of Implantable Prosthesis: No Hx Post-Op Nausea and Vomiting: No Hx Cancer Surgery: No Hx Thoracic Surgery: No Hx Orthopedic: No Hx Urinary Tract Surgery: Yes (lithotripsy) Family History None Social History Smoking Status: Current Every Day Smoker Hx Substance Use: No Hx Alcohol Use: No Allergies Coded Allergies: Morphine (Verified Allergy, Intermediate, hives, 02/05/18) Ciprofloxacin (Verified Adverse Reaction, Unknown, REACTION WITH METHADONE , 02/05/18) Clarithromycin (Verified Adverse Reaction, Unknown, REACTION WITH METHADONE, 02/05/18) Erythromycin (Verified Adverse Reaction, Unknown, REACTION WITH METHADONE , 02/05/18) Tramadol (Verified Adverse Reaction, Unknown, REACTION WITH METHADONE, 02/05) Current Medications Reported Home Medications Medications Dose Route/Sig Max Daily Dose Days Date Category Advil (Ibuprofen) 200 Mg Tab 200-600 Mg PO Q4H PRN 02/05/18 Reported Prilosec (Omeprazole) 40 Mg Cap 40 Mg PO QAM 02/05/18 Reported Phenergan (Promethazine HCl) 12.5 Mg Tab 12.5 Mg PO Q8H PRN 02/05/18 Reported Methadone Hcl 10 Mg/5 Ml Tata 37 Mg PO QAM 06/25/17 Reported Vital Signs Weight (Kilograms): 72.73 Height (Feet): 5 Height (Inches): 10 Date Time Temp Pulse Resp B/P (MAP) Pulse Ox O2 Delivery O2 Flow Rate FiO2 02/06/18 11:49 36.8 80 20 144/98 (113) 98 Room Air Physical Exam General Appearance: no apparent distress Respiratory/Chest: Auscultation: breath sounds normal Cardiovascular: Heart Auscultation: RRR Abdomen: Inspection & Palpation: soft Assessment and Plan Abd pain - EGD
--- NOTE | 2018-02-06 13:39 | GI REPORT ---
Procedure Date: 02/06/2018 12:56 PM THIS REPORT HAS BEEN AMENDED Addendum Number: 1 Addendum Date: 02/06/2018 5:23:[address] reviewed with radiologist form earlier this week. Submucosal mass clearly appears to be a lipoma. Would defer any further w.u. Procedure: Upper GI endoscopy Indications: Abdominal pain Medicines: See the Anesthesia note for documentation of the administered medications Complications: No immediate complications. Estimated Blood Loss: Estimated blood loss: none. Procedure: Pre-Anesthesia Assessment: - ASA Grade Assessment: II - A patient with mild systemic disease. After obtaining informed consent, the endoscope was passed under direct vision. Throughout the procedure, the patient's blood pressure, pulse, and oxygen saturations were monitored continuously. The scope was introduced through the mouth, and advanced to the second part of duodenum. The upper GI endoscopy was accomplished without difficulty. The patient tolerated the procedure well. Findings: The examined esophagus was normal. Large submucosal mass in fundus that was firm to probing best seen on retroflexed view. This was biopsied. The stomach was otherwise normal. Random biopsies done. The duodenum was normal. Random biopsies done. Impression: Submucosal mass in fundus, otherwise unremarkable exam. Recommendation: Discharge patient to home. Outpt EUS. Pj Berrios MD 02/06/2018 1:39:05 PM This report has been signed electronically. Note Initiated On: 02/06/2018 12:56 PM I attest to the content of the Intraoperative Record and orders documented therein, exceptions below Pj Berrios MD 02/06/2018 5:24:24 PM This report has been signed electronically.
--- NOTE | 2018-02-06 13:49 | Anesthesiology Progress Note ---
Anesthesia Post Op Note Date & Time Feb 06, 2018 at 13:48 Vital Signs Pain Intensity: 0 Vital Signs Past 12 Hours Date Time Temp Pulse Resp B/P (MAP) Pulse Ox O2 Delivery O2 Flow Rate FiO2 02/06/18 13:35 75 20 144/84 (104) 97 Room Air 02/06/18 11:49 36.8 80 20 144/98 (113) 98 Room Air Notes Mental Status: alert / awake / arousable, participated in evaluation Pt Amnestic to Procedure: Yes Nausea / Vomiting: adequately controlled Pain: adequately controlled Airway Patency, RR, SpO2: stable & adequate BP & HR: stable & adequate Hydration State: stable & adequate Anesthetic Complications: no major complications apparent
--- NOTE | 2018-02-06 13:53 | Discharge Instructions ---
Endoscopy Patient Instructions Date / Procedure(s) Performed Feb 06, 2018. EGD Allergy Information Coded Allergies: Morphine (Verified Allergy, Intermediate, hives, 02/05/18) Ciprofloxacin (Verified Adverse Reaction, Unknown, REACTION WITH METHADONE , 02/05/18) Clarithromycin (Verified Adverse Reaction, Unknown, REACTION WITH METHADONE, 02/05/18) Erythromycin (Verified Adverse Reaction, Unknown, REACTION WITH METHADONE , 02/05/18) Tramadol (Verified Adverse Reaction, Unknown, REACTION WITH METHADONE, 02/05) Discharge Date / Findings Feb 06, 2018. Submucosal lesion in fundus, biopsied. Medication Instructions Stopped Medication(s): IBUPROFIN LAST DOSE 02/03/18 Provider Instructions Activity Restrictions - No exercising or heavy lifting for 24 hours. - Do not drink alcohol the day of the procedure. - Do not drive a car or operate machinery until the day after the procedure. - Do not make any important decisions or sign important papers in 24 hours after the procedure. Following Day: - Return to full activity which may include returning to work/school. Diet Start your diet with liquids and light foods (jello, soup, juice, toast). Then eat your usual diet if not nauseated. Treatment For Common After Affects For mild abdominal pain, bloating, or excessive gas: - Rest - Eat lightly - Lie on right side Follow-Up Information Follow-up with DR MANJARREZ as scheduled Anesthesia Information What You Should Know You have had a procedure that required some medicine to reduce anxiety and discomfort. This treatment is called moderate sedation. After receiving the treatment, you may be sleepy, but you will be able to breathe on your own. The effects of the treatment may last for several hours. Follow these instructions along with Activity/Diet recommendations noted above: * Do NOT do anything where dizziness or clumsiness would be dangerous. * Rest quietly at home today, then you can be up and about tomorrow. * Have a responsible person stay with you the rest of today. * You may have had an I.V. today. If so, you may take the dressing off later today. Recommendations Call your doctor if: * Trouble breathing * Continuous vomiting for more than 24 hours * Temperature above 101 degrees * Severe abdominal pain or bloating * Pain not relieved by pain medicine ordered * There is increased drainage or redness from any incision * A large amount of rectal bleeding greater than 2-3 tablespoons. (If you had a polyp/s removed or have hemorrhoids, a small amount of blood - from the rectum is to be expected.) * You have any unanswered questions or concerns. IN THE EVENT OF A SERIOUS EMERGENCY, GO TO THE NEAREST EMERGENCY ROOM Your discharge instructions were prepared by provider Peter Rios. Patient Instructions Signature Page Bud Facer Patient (or Guardian) Signature/Date: I have read and understand the instructions given to me by my caregivers. Caregiver/RN/Doctor Signature/Date: The above-named patient and/or guardian has received patient instructions on this date. + Original Patient Signature Page (only) stays with chart. Please make copy for patient.
[2018-02-06 14:06] VITALS: BP 124/73; PULSE 64; O2SAT 99
== END | disposition home or self-care (01) ==
LOC: C.GI 11:25
PROVIDERS: ATTEND Internal Medicine Gastroenterology
DX: R10.10 Upper abdominal pain, unspecified (principal); F17.200 Nicotine dependence, unspecified, uncomplicated; Z88.1 Allergy status to other antibiotic agents; Z88.5 Allergy status to narcotic agent; Z88.8 Allergy status to other drugs, medicaments and biological substances

== ENCOUNTER 2020-05-18 00:39 | Inpatient (IN) ==
[2020-05-18] MEDS ORDERED: SODIUM CHLORIDE 0.9% 1000ML 1,000 ML IV SCH (01:00)
--- NOTE | 2020-05-18 01:01 | Emergency Department Note ---
History of Present Illness General Chief complaint: Kidney Stone Stated complaint: KIDNEY STONE Time Seen by Provider: 05/18/20 00:46 History of Present Illness Maximum Pain Intensity: 6 This is a 34-year-old male that presents to the emergency department via ambulance with complaints of "kidney stone". The patient states that he was here in the emergency department recently and diagnosed with a 5 mm left-sided kidney stone. He states that he has been taking the medication as prescribed and has even had Flomax x2 and notes that today the pain sharply increased therefore prompting his arrival here today. There is associated chills but no fever. Pain 6/10. No alleviating factors. IV Toradol provided in route. Home Medications Home Medications Medication Instructions Recorded Confirmed Type methadone 5 mg/5 mL oral solution 22 mg PO QAM ml 08/04/19 05/18/20 History Medical Marijuanana 1 inh PO UD 05/16/20 05/18/20 History ondansetron 4 mg PO Q6 PRN #14 tab 05/16/20 05/18/20 Rx oxycodone-acetaminophen [Percocet] 1 tab PO Q6H PRN #20 tab 05/16/20 05/18/20 Rx Allergies Allergy/AdvReac Type Severity Reaction Status Date / Time morphine Allergy Intermediate hives Verified 05/16/20 11:39 Cipro AdvReac Unknown REACTION Verified 02/06/18 08:08 WITH METHADONE ciprofloxacin AdvReac Unknown REACTION Verified 05/16/20 11:39 WITH METHADONE clarithromycin AdvReac Unknown REACTION Verified 05/16/20 11:39 WITH METHADONE erythromycin base AdvReac Unknown REACTION Verified 05/16/20 11:39 WITH METHADONE tramadol AdvReac Unknown REACTION Verified 05/16/20 11:39 WITH METHADONE Past Med/Surg History Medical History History of kidney stones Surgical History History of lithotripsy Social History Preferred Language: Ukrainian Communication Ability: Effective 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 Other Information That Helps Us Care for You: Yes (Ex-heroin user, clean for 5 years.) Feels Safe at Home: Yes Safety Concerns: Feels Safe At This Time Smoking Status: Current every day smoker Tobacco Type: cigarettes ; Do You Dip or Chew Tobacco: No ; Tobacco Cessation Education Requested by Patient: Yes Hx Alcohol Use: Yes Alcohol type: beer Hx Substance Use: Yes substance use type: former substance user, marijuana and heroin Last Used Substance: Unknown Last Used Substance Other:: Patient last used heroine 2014, currently prescribed methadone. aware. Review of Systems A total of 10 systems reviewed and were otherwise negative Physical Exam Vital Signs Vital Signs - 24 hr 05/18/20 00:45 05/18/20 01:44 05/18/20 02:44 Temperature 37.3 C Temperature Source Oral Pulse Rate 84 Pulse Rate [Right Finger] 78 82 Pulse Rhythm Regular Respiratory Rate 16 14 18 Respiratory Effort / Characteristics Non-Labored Spontaneous Non-Labored Spontaneous Respiratory Depth Shallow Normal Respiratory Pattern Regular Blood Pressure 148/91 H Blood Pressure [Right Arm] 125/88 113/72 Blood Pressure Mean 110 Blood Pressure Mean [Right Arm] 100 85 Pulse Oximetry 99 98 97 Oxygen Delivery Method Room Air Room Air Sepsis Recent Fever Within 48 Hours No Sepsis New/Unexplained Change in Mental Status No Sepsis Action Taken by Nursing No Action Required VITAL SIGNS - Vital signs and nursing notes were reviewed. Stable and afebrile. GENERAL - 34-year-old male appearing his stated age who is in no acute distress but appears to be in pain. Communicates well with provider and answers questions appropriately. SKIN - Without rashes. HEAD - NC/AT. EYES - PERRL with EOMI bilaterally. Sclera anicteric. EARS - No deformities of external structures noted on gross examination bilaterally. NOSE - Midline and without cyanosis. No epistaxis or purulent drainage noted. MOUTH/OROPHARYNX - Without perioral cyanosis. NECK - Neck with FROM. Supple to palpation. No lymphadenopathy noted. No nuchal rigidity. LUNGS - Chest wall symmetric without accessory muscle use, intercostals retractions, or central cyanosis. Normal vesicular breath sounds CTA B/L. No wheezes, rales, or rhonchi appreciated. CARDIAC - RRR with S1/S2. No murmur, rubs, or gallops appreciated. ABDOMEN - Abdominal contour normal without pulsations or visible masses. BS normoactive all four quadrants. No tenderness, palpable masses, hepatosplenomegaly, or ascites noted. EXTREMITIES - No clubbing or peripheral cyanosis. No pretibial edema present. NEUROLOGIC - Cranial nerves II through XII grossly intact. Sensory intact to light touch throughout. PSYCH - A&Ox3 and cooperates fully with examiner. Pt is very pleasant and interacts well with examiner. Course Administered Medications Hydromorphone HCl (Dilaudid) 0.5 mg IV Q3H PRN PRN Reason: Severe Pain Stop: 06/01/20 04:52 Last Admin: 05/18/20 05:03 Dose: 0.5 mg Documented by: [id number] Famotidine 20 mg/ Syringe 5 mls @ 2.5 mls/min IV Q12H DESEAN Stop: 06/17/20 04:59 Last Admin: 05/18/20 06:03 Dose: 2.5 mls/min Documented by: [id number] Ceftriaxone Sodium 1,000 mg/ (Dextrose) 50 mls @ 100 mls/hr IV Q24H DESEAN; Protocol Stop: 05/28/20 04:59 Last Infusion: 05/18/20 06:03 Dose: 0 mls/hr Documented by: [id number] Admin: 05/18/20 05:32 Dose: 100 mls/hr Documented by: [id number] Potassium Chloride/Sodium Chloride (Normal Saline W/20 Meq Kcl) 20 meq in 1,000 mls @ 80 mls/hr IV .[id number] DESEAN Stop: 06/17/20 04:52 Last Admin: 05/18/20 06:03 Dose: 80 mls/hr Documented by: [id number] Ondansetron HCl (Zofran) 4 mg IV Q6H PRN PRN Reason: Nausea Stop: 06/17/20 04:52 Last Admin: 05/18/20 05:03 Dose: 4 mg Documented by: [id number] Discontinued Medications Hydromorphone HCl (Dilaudid) 0.5 mg IV NOW STA Stop: 05/18/20 02:37 Last Admin: 05/18/20 02:42 Dose: 0.5 mg Documented by: [id number] Sodium Chloride (Nss 1000ml) 1,000 mls @ 999 mls/hr IV .Q1H1M DESEAN Stop: 05/18/20 02:00 Last Infusion: 05/18/20 02:20 Dose: 0 mls/hr Documented by: [id number] Admin: 05/18/20 01:06 Dose: 999 mls/hr Documented by: [id number] Medical Decision Making Laboratory Data Result diagrams: 05/18/20 01:01 05/18/20 01:01 Lab Results 05/18/20 05/18/20 05/18/20 Range/Units 01:01 01:01 02:30 WBC 12.89 H (4.8-10.8) K/uL RBC 4.77 (4.7-6.1) M/uL Hgb 14.3 (14.0-18.0) g/dL Hct 42.4 (42-52) % MCV 88.9 (80-100) fL MCH 30.0 (25-34) pg MCHC 33.7 (32-36) g/dL RDW Std Deviation 39.0 (36.4-46.3) fL RDW Coeff of Gemma 12.2 (11.5-14.5) % Plt Count 273 (130-400) K/uL MPV 10.3 (7.4-10.4) fL Immature Gran % (Auto) 0.2 % Neut % (Auto) 83.4 % Lymph % (Auto) 11.3 % [place] % (Auto) 4.4 % Eos % (Auto) 0.5 % Baso % (Auto) 0.2 % Immature Gran # (Auto) 0.02 (0.00-0.02) K/uL Neut # (Auto) 10.74 H (1.4-6.5) K/uL Lymph # (Auto) 1.46 (1.2-3.4) K/uL [place] # (Auto) 0.57 (0.11-0.59) K/uL Eos # (Auto) 0.07 (0-0.5) K/uL Baso # (Auto) 0.03 (0-0.2) K/uL Sodium 140 (136-145) mmol/L Potassium 3.7 (3.5-5.1) mmol/L Chloride 109 H (98-107) mmol/L Carbon Dioxide 27 (21-32) mmol/L Anion Gap 5.0 (3-11) BUN 9 (7-18) mg/dl Creatinine 0.81 (0.6-1.4) mg/dl Est Cr Clr Drug Dosing 130.2 ml/min Est GFR ( Amer) 132.5 Est GFR (Non-Af Amer) 114.3 BUN/Creatinine Ratio 10.5 (10-20) Glucose 115 H (70-99) mg/dl Calcium 8.4 L (8.5-10.1) mg/dl Total Bilirubin 1.0 D (0.2-1) mg/dl AST 8 L (15-37) U/L ALT 16 (12-78) U/L Alkaline Phosphatase 67 (45-117) U/L Total Protein 6.6 (6.4-8.2) gm/dl Albumin 3.5 (3.4-5.0) gm/dl Globulin 3.1 (2.5-4.0) gm/dl Albumin/Globulin Ratio 1.1 (0.9-2) Urine Color Yellow Urine Appearance Clear (Clear) Urine pH 7.0 (4.5-7.5) Ur Specific [place] 1.012 (1.000-1.030) Urine Protein Negative (Negative) Urine Glucose (UA) Negative (Negative) Urine Ketones Negative (Negative) Urine Blood 2+ H (Negative) Urine Nitrite Negative (Negative) Urine Bilirubin Negative (Negative) Urine Urobilinogen Negative (Negative) Ur Leukocyte Esterase Negative (Negative) Urine WBC (Auto) 1-5 (0-5) /hpf Urine RBC (Auto) 0-4 (0-4) /hpf U Hyaline Cast (Auto) 1-5 (0-5) /lpf U Epithel Cells (Auto) 5-10 H (0-5) /lpf Urine Bacteria (Auto) Negative (Negative) Imaging Data My Impression: KUB: Left sided stone noted, minimal improvement/movement of stone since CT scan MDM Narrative Patient was seen and evaluated as above in room C12. Review was performed of nursing notes and vital signs. I did review pertinent previous visits and pa tient history. After obtaining a thorough history and physical examination the above work-up was performed. He presents to us today with a known obstructing 5 mm UPJ stone on the left. He was diagnosed with this about 2 days ago. No fever at this time. Vital signs are stable. He was given Toradol in the ambulance. White blood cell count 12.9. No anemia. No emergent metabolic disturbance. Urinalysis does not suggest infection. Patient was also medicated with IV Dilaudid here. I discussed options of care with the patient and given that he has tried passing this at home without relief and now with a great deal of pain with what appears to be little progression on the KUB further evaluation and management the inpatient setting was felt to be warranted. Case discussed with the hospitalist. Please refer to further documentation regarding his stay. In the evaluation and treatment of this patient the following differential diagnoses were entertained: Renal calculi, pyelonephritis, UTI, sepsis, obstruction, among others. Impression & Plan Obstruction of left ureteropelvic junction (UPJ) due to stone Discharge Plan Visit Data *Final* Discharge Date/Time: 05/18/20 04:42 Chief Complaint: Kidney Stone Stated Complaint: KIDNEY STONE ED Provider: Anastasia Singh ED Midlevel Provider: Adán [place] Discharge Problem: Obstruction of left ureteropelvic junction (UPJ) due to stone Patient Disposition: Admitted As Inpatient Discharge Instructions Interventions: ED Discharge Assessment Last Done: 05/18/20 04:42
[2020-05-18 01:11] LABS: Basophils # (auto) 0.03 K/uL (0-0.2); Basophils % (auto) 0.2 %; Eosinophils # (auto) 0.07 K/uL (0-0.5); Eosinophils % (auto) 0.5 %; Hematocrit (blood only) 42.4 % (42-52); Hemoglobin 14.3 g/dL (14.0-18.0); Immature Granulocytes # (auto) 0.02 K/uL (0.00-0.02); Immature Granulocytes % (auto) 0.2 %; Lymphocytes # (auto) 1.46 K/uL (1.2-3.4); Lymphocytes % (auto) 11.3 %; Mean Corpuscular Hgb Conc 33.7 g/dL (32-36); Mean Corpuscular Volume 88.9 fL (80-100); Mean Platelet Volume 10.3 fL (7.4-10.4); Monocytes # (auto) 0.57 K/uL (0.11-0.59); Monocytes % (auto) 4.4 %; Neutrophils # (auto) 10.74 K/uL (1.4-6.5); Neutrophils % (auto) 83.4 %; Platelet Count 273 K/uL (130-400); RDW Coefficient of Variation 12.2 % (11.5-14.5); Red Blood Count 4.77 M/uL (4.7-6.1); White Blood Count 12.89 K/uL (4.8-10.8)
[2020-05-18 01:32] LABS: Albumin Level 3.5 gm/dl (3.4-5.0); BUN Creatinine Ratio 10.5 (10-20); Calcium 8.4 mg/dl (8.5-10.1); Creatinine Clr Calc Pharmacy 130.2 ml/min; Est GFR (African American) 132.5; Est GFR (Non-African American) 114.3; Potassium 3.7 mmol/L (3.5-5.1)
[2020-05-18 01:34] LABS: Albumin Globulin Ratio 1.1 (0.9-2); Globulin 3.1 gm/dl (2.5-4.0); Total Protein 6.6 gm/dl (6.4-8.2)
[2020-05-18] MEDS ORDERED: HYDROmorphone INJ 0.5 MG/0.5 ML SYR IV STA (02:36)
[2020-05-18 02:56] LABS: Appearance Urine Clear (Clear); Bacteria Urine Automated Negative (Negative); Bilirubin Urine Negative (Negative); Blood Urine 2+ (Negative); Color Urine Yellow; Glucose Urine UA Negative (Negative); Ketones Urine Negative (Negative); Leukocyte Esterase Urine Negative (Negative); Nitrite Urine Negative (Negative); Protein Urine Negative (Negative); RBC Urine Automated 0-4 /hpf (0-4); Specific Gravity Urine 1.012 (1.000-1.030); Urobilinogen Urine Negative (Negative)
--- NOTE | 2020-05-18 04:03 | History & Physical Report ---
Date of Service May 18, 2020 Assessment & Plan (1) Kidney stone on left side: Left UPJ 5 mm obstructing stone with hydronephrosis- N.p.o. Acetaminophen 1000 mg IV every 8 hours PRN mild pain or temperature Dilaudid 0.5 mg IV every 3 hours as needed severe pain Famotidine 20 mg IV every 12 hours NSS + KCl 20 mEq at 80 mils per hour Follow urine culture and sensitivity Zofran 4 mg IV every 6 hours as needed Consult urology Dr. Kapoor Present on Admission?: Yes (2) Renal colic on left side: See above Present on Admission?: Yes (3) Hydronephrosis concurrent with and due to calculi of kidney and ureter: See above Present on Admission?: Yes (4) Vomiting: Placing on Zofran 4 mg IV every 6 hours as needed for vomiting associated with renal colic pain Present on Admission?: Yes (5) Methadone maintenance therapy patient: Holding methadone while on Dilaudid IV. Present on Admission?: Yes History of Present Illness Chief Complaint: The patient presents to the emergency department with persistent and worsening left-sided back pain and flank pain, accompanied with nausea vomiting. Primary Care Provider: Shola Tillman MD The patient is a 34-year-old male with a past medical history including hypertension, medical marijuana use, chronic methadone use and kidney stones. He presented to the emergency department on 05/16, at which time he was diagnosed with a 5 mm left UPJ obstructing stone with hydronephrosis. He was discharged on Percocet, however, his pain is intensified, he is not passed a stone, and is here for reassessment this evening. Allergies Allergy/AdvReac Type Severity Reaction Status Date / Time morphine Allergy Intermediate hives Verified 05/16/20 11:39 Cipro AdvReac Unknown REACTION Verified 02/06/18 08:08 WITH METHADONE ciprofloxacin AdvReac Unknown REACTION Verified 05/16/20 11:39 WITH METHADONE clarithromycin AdvReac Unknown REACTION Verified 05/16/20 11:39 WITH METHADONE erythromycin base AdvReac Unknown REACTION Verified 05/16/20 11:39 WITH METHADONE tramadol AdvReac Unknown REACTION Verified 05/16/20 11:39 WITH METHADONE Home Medications Home Medications Medication Instructions Recorded Confirmed Type methadone 5 mg/5 mL oral solution 22 mg PO QAM ml 08/04/19 05/18/20 History Medical Marijuanana 1 inh PO UD 05/16/20 05/18/20 History ondansetron 4 mg PO Q6 PRN #14 tab 05/16/20 05/18/20 Rx oxycodone-acetaminophen [Percocet] 1 tab PO Q6H PRN #20 tab 05/16/20 05/18/20 Rx Past Med/Surg History Social History Feels Safe at Home: Yes Smoking Status: Current every day smoker Review of Systems Review of Systems: The patient denies chest pain, palpitations, shortness of breath, dyspnea on exertion, cough, lower extremity swelling, sore throat, fevers, chills, sweats, diarrhea , constipation, blood in urine or stool, dysuria, urinary frequency or urgency, lightheadedness, dizziness, headache, memory loss, loss of consciousness, rash, abnormal bruising or bleeding, imbalance, focal or generalized weakness, numbness or tingling in arms or legs, generalized arthralgias or myalgias, back or neck pain, or night sweats. The review of systems is otherwise negative other than for that already noted above, and at least 10 systems have been reviewed. Physical Exam Physical Exam: The patient is awake, alert and oriented 3, well developed and well nourished, normocephalic and atraumatic, lying in bed and in no acute distress. HEENT--PERRL, EOMI, mucous membranes and oropharynx dry. Neck--supple. No JVD. No bruits. Thyroid normal, trachea midline, no adenopathy. Heart--normal S1 and S2. No murmurs, rubs or gallops. Lungs--clear bilaterally, no respiratory distress, no accessory muscle use. Abdomen--normal bowel sounds and soft. Nontender, status post administration of Dilaudid IV. Nondistended. Extremities--no cyanosis or clubbing. No edema. There are good distal pulses b/l. Dermatologic--normal skin turgor, normal color, no abnormal lymph nodes, no rash. Neurologic--cranial nerves II through XII grossly intact. Rheumatologic--normal range of motion. Psychiatric--normal affect. Results & Data Results & Data ([facility]) Vital Signs (Past 12 Hours) Vital Signs Temp Pulse Pulse Resp BP BP Pulse Ox 05/18/20 02:44 82 18 113/72 97 05/18/20 01:44 78 14 125/88 98 05/18/20 00:45 99.1 F 84 16 148/91 H 99 Laboratory Results Laboratory Results WBC 12.89 K/uL (4.8-10.8) H 05/18/20 01:01 RBC 4.77 M/uL (4.7-6.1) 05/18/20 01:01 Hgb 14.3 g/dL (14.0-18.0) 05/18/20 01:01 Hct 42.4 % (42-52) 05/18/20 01:01 MCV 88.9 fL (80-100) 05/18/20 01:01 MCH 30.0 pg (25-34) 05/18/20 01:01 MCHC 33.7 g/dL (32-36) 05/18/20 01:01 RDW Std Deviation 39.0 fL (36.4-46.3) 05/18/20 01:01 RDW Coeff of Gemma 12.2 % (11.5-14.5) 05/18/20 01:01 Plt Count 273 K/uL (130-400) 05/18/20 01:01 MPV 10.3 fL (7.4-10.4) 05/18/20 01:01 Immature Gran % (Auto) 0.2 % 05/18/20 01:01 Neut % (Auto) 83.4 % 05/18/20 01:01 Lymph % (Auto) 11.3 % 05/18/20 01:01 Bonner % (Auto) 4.4 % 05/18/20 01:01 Eos % (Auto) 0.5 % 05/18/20 01:01 Baso % (Auto) 0.2 % 05/18/20 01:01 Immature Gran # (Auto) 0.02 K/uL (0.00-0.02) 05/18/20 01:01 Neut # (Auto) 10.74 K/uL (1.4-6.5) H 05/18/20 01:01 Lymph # (Auto) 1.46 K/uL (1.2-3.4) 05/18/20 01:01 Bonner # (Auto) 0.57 K/uL (0.11-0.59) 05/18/20 01:01 Eos # (Auto) 0.07 K/uL (0-0.5) 05/18/20 01:01 Baso # (Auto) 0.03 K/uL (0-0.2) 05/18/20 01:01 Sodium 140 mmol/L (136-145) 05/18/20 01:01 Potassium 3.7 mmol/L (3.5-5.1) 05/18/20 01:01 Chloride 109 mmol/L (98-107) H 05/18/20 01:01 Carbon Dioxide 27 mmol/L (21-32) 05/18/20 01:01 Anion Gap 5.0 (3-11) 05/18/20 01:01 BUN 9 mg/dl (7-18) 05/18/20 01:01 Creatinine 0.81 mg/dl (0.6-1.4) 05/18/20 01:01 Est Cr Clr Drug Dosing 130.2 ml/min 05/18/20 01:01 Est GFR ( Amer) 132.5 05/18/20 01:01 Est GFR (Non-Af Amer) 114.3 05/18/20 01:01 BUN/Creatinine Ratio 10.5 (10-20) 05/18/20 01:01 Glucose 115 mg/dl (70-99) H 05/18/20 01:01 Calcium 8.4 mg/dl (8.5-10.1) L 05/18/20 01:01 Total Bilirubin 1.0 mg/dl (0.2-1) D 05/18/20 01:01 AST 8 U/L (15-37) L 05/18/20 01:01 ALT 16 U/L (12-78) 05/18/20 01:01 Alkaline Phosphatase 67 U/L (45-117) 05/18/20 01:01 Total Protein 6.6 gm/dl (6.4-8.2) 05/18/20 01:01 Albumin 3.5 gm/dl (3.4-5.0) 05/18/20 01:01 Globulin 3.1 gm/dl (2.5-4.0) 05/18/20 01:01 Albumin/Globulin Ratio 1.1 (0.9-2) 05/18/20 01:01 Urine Color Yellow 05/18/20 02:30 Urine Appearance Clear (Clear) 05/18/20 02:30 Urine pH 7.0 (4.5-7.5) 05/18/20 02:30 Ur Specific [place] 1.012 (1.000-1.030) 05/18/20 02:30 Urine Protein Negative (Negative) 05/18/20 02:30 Urine Glucose (UA) Negative (Negative) 05/18/20 02:30 Urine Ketones Negative (Negative) 05/18/20 02:30 Urine Blood 2+ (Negative) H 05/18/20 02:30 Urine Nitrite Negative (Negative) 05/18/20 02:30 Urine Bilirubin Negative (Negative) 05/18/20 02:30 Urine Urobilinogen Negative (Negative) 05/18/20 02:30 Ur Leukocyte Esterase Negative (Negative) 05/18/20 02:30 Urine WBC (Auto) 1-5 /hpf (0-5) 05/18/20 02:30 Urine RBC (Auto) 0-4 /hpf (0-4) 05/18/20 02:30 U Hyaline Cast (Auto) 1-5 /lpf (0-5) 05/18/20 02:30 U Epithel Cells (Auto) 5-10 /lpf (0-5) H 05/18/20 02:30 Urine Bacteria (Auto) Negative (Negative) 05/18/20 02:30 Diagnostic Findings [place], [place] [phone] CT Scan Report Patient: RAH MONTANO Date: 05/16/20 MR#: [id number]: [facility] Acct ID:[id number]: Date: 1985[facility] Zip: [place] [address] Age: 34Location: ED Sex: M Room/Bed: Att Phy:Diagnosis: KIDNEY PAIN,HEADACHE,NAUSEA Arlette Phy: Shola Tillman III, MDService Date: 05/16/20 Fam Phy:Interpreting Phy: Júnior Melendrez MD Admit Phy: Ordering Phy: Neymar Nieto D.O. cc: ~ CT SCAN OF THE ABDOMEN AND PELVIS WITHOUT CONTRAST CLINICAL HISTORY: left flank pain COMPARISON STUDY: January 2018 TECHNIQUE: CT scan of the abdomen and pelvis was performed from the lung bases to the proximal femurs. Images are reviewed in the axial, sagittal, and coronal planes. IV contrast was not administered for this examination. A dose lowering technique was utilized adhering to the principles of ALARA. CT DOSE: 338.85 mGy.cm FINDINGS: Lower chest: There are subpleural atelectatic changes Liver: The unenhanced liver is normal in size, contour, and attenuation. There is no intrahepatic biliary ductal dilatation. Gallbladder: Contracted Spleen: Normal in size and attenuation. Pancreas: Unremarkable. Adrenal glands: Unremarkable. Kidneys: There are multiple small bilateral renal calculi. There is a 5 mm proximal left ureteropelvic junction calculus with secondary obstructive changes Bowel: There are no transition zones to indicate bowel obstruction. There is no evidence of acute diverticulitis. The appendix appears normal. 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 Peritoneum: There is no intraperitoneal free air or abdominal ascites. Vasculature: The abdominal aorta is normal in course and caliber. Adenopathy: None. Pelvic viscera: The bladder, and pelvic viscera are unremarkable. Skeletal structures: No destructive osseous lesions are seen. IMPRESSION: 1. Bilateral nephrolithiasis 2. 5 mm left UPJ calculus with secondary obstructive change 3. No evidence of bowel obstruction. No evidence of free air 4. Normal appendix 5. 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 Electronically signed by: Júnior Melendrez M.D. 05/16/2020 12:22 PM Dictated: 05/16/20 1214 Transcribed: 05/16/20 1219 Code Status & VTE Plan Code Status Full code VTE Prophylaxis Plan VTE Prophylaxis will be ordered: Yes PG Care Time/CCT Total # of Minutes Spent Total Time Spent with Patient: Total time spent is greater than 50% in coordination of care (as documented) at patient's floor/unit and/or counseling patient: Coding Level of Care Code 36623 Initial Inpt Care Lvl 2 Diagnoses Kidney stone on left side N20.0 Renal colic on left side N23 Hydronephrosis concurrent with and due to calculi of kidney and ureter N13.2 Vomiting R11.10 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
[2020-05-18] MEDS ORDERED: ACETAMINOPHEN 1,000 MG/100 ML VIAL IV PRN (04:53)
[2020-05-18] MEDS ORDERED: ONDANSETRON INJ 2 MG/ML 2 ML VIAL IV PRN (04:53)
[2020-05-18] MEDS ORDERED: cefTRIAXone SODIUM 1,000 MG in DEXTROSE 5% 50 ML IV SCH (05:00)
[2020-05-18] MEDS: HYDROmorphone INJ 0.5 MG/0.5 ML SYR IV PRN ×5 (05:03→23:52)
[2020-05-18] MEDS: NSS + 20MEQ KCL 20 MEQ/1,000 ML BAG IV SCH ×2 (06:03→18:08)
[2020-05-18] MEDS: FAMOTIDINE 20 MG in SYRINGE 3 ML IV SCH ×2 (06:03→17:50)
--- NOTE | 2020-05-18 07:56 | XRay Report ---
KUB CLINICAL HISTORY: flank pain, L 5mm stone COMPARISON STUDY: CT of the abdomen and pelvis May 16, 2020. FINDINGS: A 4 mm proximal left ureteral calculus is similar position to CT of May 16, 2020. A 3 mm c alculus within lower pole of the right kidney is also unchanged. No additional ureteral calculi are i dentified. The bowel gas pattern is normal. IMPRESSION: 1. No change in a 4 mm proximal left ureteral calculus. 2. 3 mm right renal calculus. ACT 112: Negative or not required by law. Electronically signed by: John Ronquillo M.D. 05/18/2020 7:55 AM
--- NOTE | 2020-05-18 09:07 | Urology Consultation ---
Date of Consultation May 18, 2020 Assessment & Plan (1) Obstruction of left ureteropelvic junction (UPJ) due to stone: Obstructing left UPJ calculus Bilateral nonobstructing stones within each kidney Pain currently tolerable I will let him eat today could but make him n.p.o. over midnight with the plan for cystoscopy, left ureteroscopy, laser lithotripsy tomorrow The goal would be to clear his left side entirely of stone He will need a stent after the procedure and is understanding of this History of Present Illness Attending Physician: Meri Hunter MD History of Present Illness 34-year-old male admitted through the emergency room overnight with severe left flank pain/renal colic He has a history of kidney stones including prior surgeries in the form of both ureteroscopy/stent as well as ESWL CT revealed bilateral stones, no obstruction on the right, 4 mm left UPJ stone causing obstruction on the left which likely explains his pain He is not septic or toxic He feels better this morning although he has not passed the stone and he still has significant discomfort Allergies Allergy/AdvReac Type Severity Reaction Status Date / Time morphine Allergy Intermediate hives Verified 05/16/20 11:39 Cipro AdvReac Unknown REACTION Verified 02/06/18 08:08 WITH METHADONE ciprofloxacin AdvReac Unknown REACTION Verified 05/16/20 11:39 WITH METHADONE clarithromycin AdvReac Unknown REACTION Verified 05/16/20 11:39 WITH METHADONE erythromycin base AdvReac Unknown REACTION Verified 05/16/20 11:39 WITH METHADONE tramadol AdvReac Unknown REACTION Verified 05/16/20 11:39 WITH METHADONE Home Medications Home Medications Medication Instructions Recorded Confirmed Type methadone 5 mg/5 mL oral solution 22 mg PO QAM ml 08/04/19 05/18/20 History Medical Marijuanana 1 inh PO UD 05/16/20 05/18/20 History ondansetron 4 mg PO Q6 PRN #14 tab 05/16/20 05/18/20 Rx oxycodone-acetaminophen [Percocet] 1 tab PO Q6H PRN #20 tab 05/16/20 05/18/20 Rx Patient History Medical History History of kidney stones Surgical History History of lithotripsy Social History Preferred Language: Italian Communication Ability: Effective Equipment Processor Required: No Beliefs That Will Affect Care: None Current Living Situation Comment: lives with girlfriend. Other Information That Helps Us Care for You: Yes (Ex-heroin user, clean for 5 years.) Feels Safe at Home: Yes Safety Concerns: Feels Safe At This Time Smoking Status: Current every day smoker Tobacco Type: cigarettes ; Do You Dip or Chew Tobacco: No ; Tobacco Cessation Education Requested by Patient: Yes Hx Alcohol Use: Yes Alcohol type: beer Hx Substance Use: Yes substance use type: former substance user, marijuana and heroin Last Used Substance: Unknown Last Used Substance Other:: Patient last used heroine 2014, currently prescribed methadone. MD aware. Review of Systems Constitutional: no fever, no chills and no fatigue Eyes: no worsening vision Ear, Nose, Mouth, Throat: no facial pain and no pain with swallowing Respiratory: no cough and no dyspnea Cardiovascular: no chest pain and no palpitations Gastrointestinal: + abdominal pain and + nausea; no vomiting Musculoskeletal: no back pain Integumentary: no rash and no urticaria Neurologic: no gait abnormality and no unsteadiness Psychiatric: no behavioral changes and no depression Endocrine: no fatigue Results & Data Vital Signs (Past 12 Hours) Vital Signs Temp Pulse Pulse Resp BP BP Pulse Ox 05/18/20 07:49 36.7 C 64 16 123/83 96 05/18/20 05:05 37.3 C 84 18 113/72 97 05/18/20 04:42 75 120/77 98 05/18/20 02:44 82 18 113/72 97 05/18/20 01:44 78 14 125/88 98 05/18/20 00:45 37.3 C 84 16 148/91 H 99 PG Care Time/CCT Total # of Minutes Spent Total Time Spent with Patient: Total time spent is greater than 50% in coordination of care (as documented) at patient's floor/unit and/or counseling patient: Coding Level of Care Code 65866 Inpt Consult Level 3 Diagnoses Obstruction of left ureteropelvic junction (UPJ) due to stone N20.1
--- NOTE | 2020-05-18 18:10 | History & Physical Bridge Note ---
Date of Service May 18, 2020 History & Physical Bridge Note I have examined the patient, reviewed the History & Physical and in the interval since the performance of the History & Physical I have noted the following changes of clinical significance: Patient continues to require Dilaudid for pain in the left flank. He is concerned that he did not get his methadone today. I have ordered 20 mg of methadone with first dose now. Is having dark-colored urine. His nausea and vomiting have resolved and he did eat meals today. Vitals reviewed Gen: AAOx3, NAD HEENT: Anicteric sclerae, EOMI CV: RRR no mgr nl S1S2 Pulm: CTAB no wcr Abd: +BS soft NT ND no masses or hernias Ext: No edema Skin: No rashes, warm/dry Neuro: Full strength throughout 34-year-old male here with left-sided ureterolithiasis with hydronephrosis, no evidence of UTI or sepsis. No evidence of renal failure. Here for pain control, IV fluid hydration, and antiemetics. Plans for n.p.o. after midnight with laser lithotripsy and likely ureteral stent placement tomorrow if does not pass stone on his own. With chronic methadone use-restart methadone 20 mg p.o. once daily with first dose now -Increase IV fluids 125 mL's per hour -Okay to DC Rocephin as no evidence of infection Appreciate urology consultation
[2020-05-18] MEDS: METHADONE HCL 10 MG TAB PO SCH (18:12)
[2020-05-19] MEDS: NSS + 20MEQ KCL 20 MEQ/1,000 ML BAG IV SCH ×2 (02:10→13:27)
[2020-05-19] MEDS: FAMOTIDINE 20 MG in SYRINGE 3 ML IV SCH ×2 (03:19→16:48)
[2020-05-19] MEDS: HYDROmorphone INJ 0.5 MG/0.5 ML SYR IV PRN ×4 (03:19→16:30)
--- NOTE | 2020-05-19 08:20 | Urology Progress Note ---
Date of Service May 19, 2020 Assessment & Plan (1) Obstruction of left ureteropelvic junction (UPJ) due to stone: Obstructing left ureteral calculus We will plan to try to treat the stone definitively today with ureteroscopy, laser lithotripsy and stent placement I will attempt to obtain an rapid COVID test now Risks, benefits, expectations discussed Subjective No major changes overnight Continues to have pain related to his kidney stone We will plan for definitive treatment today in the form of cystoscopy, left ureteroscopy, laser lithotripsy and stent placement Physical Exam Constitutional: well developed and well nourished Neck: neck nontender Respiratory: normal respiratory effort; no respiratory distress and does not use accessory muscles Cardiovascular: Rate/Rhythm: regular rate Vessels: radial pulses present Extremities: no edema Gastrointestinal (Abdomen): Inspection/Auscultation: abdomen normal to inspection Percussion/Palpation: abdomen soft; abdomen nontender and no guarding Musculoskeletal: Head/Neck/Chest: normocephalic and head atraumatic Extremities: extremities normal to inspection Skin: no rashes and no lesions Trauma: no evidence of skin trauma Neurologic: awake; not obtunded Speech / Cognition: normal speech Motor/Sensory: no tremor Psychiatric: Orientation: alert and oriented x 3 Genitourinary: no CVA tenderness Lymphatic: no lymphadenopathy Results & Data Vital Signs (Past 12 Hours) Vital Signs Temp Pulse Resp BP Pulse Ox 05/19/20 06:59 36.6 C 73 16 126/82 96 05/18/20 23:02 36.6 C 68 17 131/82 96 PG Care Time/CCT Total # of Minutes Spent Total Time Spent with Patient: Total time spent is greater than 50% in coordination of care (as documented) at patient's floor/unit and/or counseling patient: Coding Level of Care Code 66568 Subseq Hosp Care Lvl 2 Diagnoses Obstruction of left ureteropelvic junction (UPJ) due to stone N20.1
[2020-05-19] MEDS: METHADONE HCL 10 MG TAB PO SCH (08:33)
[2020-05-19] MEDS ORDERED: MIDAZOLAM HCL 1 MG/ML 2ML VIAL ONE (08:58)
[2020-05-19] MEDS ORDERED: ONDANSETRON INJ 2 MG/ML 2 ML VIAL ONE (08:58)
[2020-05-19] MEDS ORDERED: LIDOCAINE HCL 2% 2 ML VIAL/AMP(20MG/ML) INFIL ONE (08:58)
[2020-05-19] MEDS ORDERED: fentaNYL citrate 100 MCG/2 ML VIAL ONE (08:58)
[2020-05-19] MEDS ORDERED: PROPOFOL IV EMULSION 10 MG/ML 20 ML VIAL IV ONE (08:58)
[2020-05-19] MEDS ORDERED: LABETALOL HCL IV 5 MG/ML 20ML IV PRN (09:16)
[2020-05-19] MEDS ORDERED: fentaNYL citrate 100 MCG/2 ML VIAL IV PRN (09:16)
[2020-05-19] MEDS ORDERED: ATROPINE SULFATE 0.1 MG/ML 10ML SYR IV PRN (09:16)
[2020-05-19] MEDS ORDERED: MEPERIDINE HCL 25 MG/ML CARP/VIAL IV PRN (09:16)
[2020-05-19] MEDS ORDERED: ONDANSETRON INJ 2 MG/ML 2 ML VIAL IV PRN (09:16)
[2020-05-19] MEDS ORDERED: PHENYLEPHRINE 100MCG/ML 5ML SYR IV PRN (09:16)
[2020-05-19] MEDS ORDERED: ePHEDrine sulfate 50 MG/ML AMP IV PRN (09:16)
--- NOTE | 2020-05-19 09:17 | Anesthesiology Consultation ---
Date of Service May 19, 2020 Assessment & Plan (1) Encounter for pre-operative examination: Chart Review Chart Review: Acceptable Risk for Surgery and Patient NOT seen in Pre Admission Testing Consults Requested none History Surgery Operation Date: 05/19/20 09:50 Proposed Procedures p Left Cystoscopy, Laser Lithotripsy, Stent Insertion - Ketan Fernandez MD Height/Weight Height: 5 ft 10 in Weight: 72.2 kg Allergies Allergy/AdvReac Type Severity Reaction Status Date / Time morphine Allergy Intermediate hives Verified 05/16/20 11:39 Cipro AdvReac Unknown REACTION Verified 02/06/18 08:08 WITH METHADONE ciprofloxacin AdvReac Unknown REACTION Verified 05/16/20 11:39 WITH METHADONE clarithromycin AdvReac Unknown REACTION Verified 05/16/20 11:39 WITH METHADONE erythromycin base AdvReac Unknown REACTION Verified 05/16/20 11:39 WITH METHADONE tramadol AdvReac Unknown REACTION Verified 05/16/20 11:39 WITH METHADONE Medications Home Medications Medication Instructions Recorded Confirmed Last Taken methadone 5 mg/5 mL oral solution 22 mg PO QAM ml 08/04/19 05/18/20 05/16/20 Medical Marijuanana 1 inh PO UD 05/16/20 05/18/20 05/16/20 08:00 ondansetron 4 mg PO Q6 PRN #14 tab 05/16/20 05/18/20 Unknown oxycodone-acetaminophen [Percocet] 1 tab PO Q6H PRN #20 tab 05/16/20 05/18/20 Unknown Active Medications Generic Name Dose Route Start Last Admin Trade Name Freq PRN Reason Stop Dose Admin Hydromorphone HCl 0.5 mg 05/18/20 04:53 05/19/20 06:33 Dilaudid IV 06/01/20 04:52 0.5 mg Q3H PRN Administration Severe Pain Acetaminophen 1,000 mg in 100 mls @ 400 mls/hr 05/18/20 04:53 05/18/20 23:40 Ofirmev IV 05/21/20 04:52 Infused Q8H PRN Infusion Mild Pain Famotidine 20 mg/ Syringe 5 mls @ 2.5 mls/min 05/18/20 05:00 05/19/20 03:19 IV 06/17/20 04:59 2.5 mls/min Q12H DESEAN Administration Potassium Chloride/Sodium Chloride 20 meq in 1,000 mls @ 125 mls/hr 05/18/20 04:53 05/19/20 02:10 Normal Saline W/20 Meq Kcl IV 06/17/20 04:52 125 mls/hr .Q8H DESEAN Administration Methadone HCl 20 mg 05/18/20 18:00 05/19/20 08:33 Dolophine PO 06/01/20 17:59 20 mg QAM DESEAN Administration Ondansetron HCl 4 mg 05/18/20 04:53 05/18/20 05:03 Zofran IV 06/17/20 04:52 4 mg Q6H PRN Administration Nausea NPO Date Last Intake of Solids: 05/18/20 Time Last Intake of Solids: 23:59 Last Intake of Solids Comment: prior to midnight. Past Medical History Medical History History of kidney stones Hypertension (Chronic) Medical marijuana use Methadone use last used heroin 2014 Smoker Past Surgical History Surgical History History of lithotripsy Social History Smoking Status: Current every day smoker tobacco type: cigarettes Do You Dip or Chew Tobacco: No Hx Alcohol Use: Yes Alcohol type: beer alcohol intake frequency: a few times a week Hx Substance Use: Yes substance use type: former substance user, marijuana and heroin Last Used Substance: Unknown Last Used Substance Other:: Patient last used heroine 2014, currently prescribed methadone. aware. Physical Exam Vital Signs Last Vital Signs Temp 36.6 C 05/19/20 06:59 Pulse 73 05/19/20 06:59 Resp 16 05/19/20 06:59 BP 126/82 05/19/20 06:59 Pulse Ox 96 05/19/20 06:59 Testing Laboratory Results 05/18/20 01:01 05/18/20 01:01 Urine Color Yellow 05/18/20 02:30 Urine Appearance Clear (Clear) 05/18/20 02:30 Urine pH 7.0 (4.5-7.5) 05/18/20 02:30 Ur Specific [place] 1.012 (1.000-1.030) 05/18/20 02:30 Urine Protein Negative (Negative) 05/18/20 02:30 Urine Glucose (UA) Negative (Negative) 05/18/20 02:30 Urine Ketones Negative (Negative) 05/18/20 02:30 Urine Nitrite Negative (Negative) 05/18/20 02:30 Ur Leukocyte Esterase Negative (Negative) 05/18/20 02:30 Urine WBC (Auto) 1-5 /hpf (0-5) 05/18/20 02:30 Urine RBC (Auto) 0-4 /hpf (0-4) 05/18/20 02:30 U Hyaline Cast (Auto) 1-5 /lpf (0-5) 05/18/20 02:30 U Epithel Cells (Auto) 5-10 /lpf (0-5) H 05/18/20 02:30 Urine Bacteria (Auto) Negative (Negative) 05/18/20 02:30
--- NOTE | 2020-05-19 11:47 | Operative Report ---
PG Post Operative Report Pre & Post Diagnosis Operation Date: 05/19/20 09:50 Pre-Op Diagnosis: Left Ureteral Stone and Hydronephrosis Post-Op Diagnosis: Left Ureteral Stone and Hydronephrosis I identified the patient and participated in the time-out.: Yes Procedure Operation Date: 05/19/20 09:50 Actual Procedures p Cystoscopy,Left Ureterscopic Laser Lithotripsy and Left Ureteral Stent Insertion(Left) - Ketan Fernandez MD Surgeon Amadeo Fernandez MD Precision Assembler Bench None Estimated Blood Loss 0 Findings Consistent with Post-Op Diagnosis Specimens None Description of Procedure The patient was identified in the preoperative holding area, appropriate informed consents were reviewed and completed and the patient was transferred to the operative suite. Upon arrival, appropriate antibiotics and anesthesia were administered and the patient was placed in dorsal lithotomy position and prepped and draped in sterile fashion. To begin the case I passed a 22 Tongan cystoscope with 30 degree lens and visual obturator. Inspection of the urethra and bladder was unremarkable. I cannulated the left UO with a sensor wire which was advanced to the kidney without difficulty. I then passed a 10 Tongan double-lumen catheter and introduce a second wire through the catheter. I then withdrew the 10 Tongan double-lumen catheter and passed a flexible ureteroscope without difficulty. Full renoscopy was conducted revealing a large calculus in the lower pole. I suspect this was the UPJ calculus seen on preoperative imaging and had been pushed retrograde into the kidney. There were several other very small fragments within the kidney. I passed a 270 m laser fiber and I began fragmenting the stone. I fragmented the stone entirely the pieces that I deemed safe for spontaneous passage. I performed a repeat renoscopy identifying no large retained fragments. I then performed a careful exit ureteroscopy identify ing no ureteral stones. I placed a 6 Tongan by 26 cm double-J ureteral stent with a string attached. There was good curl in the kidney as well as the bladder. The case was concluded, the patient extubated and taken to the PACU in stable condition. There were no complications. I attest to the content of the Intraoperative Record and any orders documented therein. Any exceptions are noted below.
--- NOTE | 2020-05-19 12:04 | Fluoroscopy Report ---
FL KUB HISTORY: 34 years-old Male LEFT LASER LITHOTRIPSY follow-up study in a patient with history of left flank pain COMPARISON: CT abdomen and pelvis 05/16/2020 TECHNIQUE: 5 spot fluoroscopic images of the abdominal left upper quadrant were obtained utilizing 13 .8 seconds fluoroscopy time FINDINGS: Left-sided ureteroscope with guidewire. Subsequent images demonstrate deployment of a left ureteral s tent which appears to be in satisfactory positioning. The previously noted left ureteral calculus is not definitively seen. IMPRESSION: Fluoroscopic assistance as above. Please see procedural report for further details. ACT 112: Negative or not required by law. The above report was generated using voice recognition software. It may contain grammatical, syntax o r spelling errors. Electronically signed by: Nathan Jovel M.D. 05/19/2020 12:03 PM
[2020-05-19] MEDS ORDERED: ALBUT/IPRATROP 3MG/0.5MG NEB 3 ML VIAL NEB STA (12:15)
--- NOTE | 2020-05-19 12:44 | Anesthesiology Progress Note ---
Date of Service May 19, 2020 Anesthesia Post Procedure Vital Signs Vital Signs: Temp Pulse Pulse Resp BP Pulse Ox 05/19/20 12:35 36.8 C 74 17 131/87 93 05/19/20 12:25 73 17 137/82 96 05/19/20 12:20 78 18 87 L 05/19/20 12:15 81 23 127/87 87 L 05/19/20 12:05 82 20 147/90 H 89 L 05/19/20 11:58 36.8 C 78 25 H 137/74 87 L 05/19/20 09:54 61 16 117/85 96 05/19/20 06:59 36.6 C 73 16 126/82 96 05/18/20 23:02 36.6 C 68 17 131/82 96 05/18/20 15:20 79 16 154/92 H 97 Pain Intensity Lower Back: Pain Intensity: 3 Left Abdomen: Pain Intensity: 3 Transfer of Care Handoff Completed per policy Notes Mental Status: alert / awake / arousable Patient Amnestic to Procedure: Yes Nausea / Vomiting: adequately controlled Pain: adequately controlled Airway Patency, RR, SpO2: stable & adequate BP & HR: stable & adequate Hydration State: stable & adequate Anesthetic Complications: no major complications apparent and Pt Satisfied with anesthetic care Notes: The patient was given a Duoneb and incentive spirometer in PACU due to SpO2 in the high 80s. SpO2 is now in the mid 90s on NC. The patient is sleepy but easily aroused. He will have continuous pulse oximetry on the floor.
[2020-05-19] MEDS ORDERED: cefTRIAXone SODIUM 1,000 MG in DEXTROSE 5% 50 ML IV STA (13:18)
[2020-05-19] MEDS ORDERED: TAMSULOSIN HCL 0.4 MG CAP PO ONE (16:03)
--- NOTE | 2020-05-19 16:11 | Discharge Summary ---
Date of Service May 19, 2020 Admission HPI Per Admitting Provider The patient is a 34-year-old male with a past medical history including hypertension, medical marijuana use, chronic methadone use and kidney stones. He presented to the emergency department on 05/16, at which time he was diagnosed with a 5 mm left UPJ obstructing stone with hydronephrosis. He was discharged on Percocet, however, his pain is intensified, he is not passed a stone, and is here for reassessment this evening. Principal Diagnosis Left ureterolithiasis with hydronephrosis Discharge Exam Constitutional WD/WN, vitals as above Eyes + anicteric sclerae Neck trachea midline, no thyromegaly Respiratory normal respiratory effort, lungs clear to auscultation Cardiovascular RRR, no murmur, no edema Chest (Breasts) Chest: normal inspection of chest Gastrointestinal (Abdomen) normal bowel sounds, soft, nontender, no hepatosplenomegaly Musculoskeletal Extremities: extremities normal to inspection; no cyanosis and no clubbing Skin no rashes, warm and dry Neurologic moves all extremities and awake; no focal motor deficits Psychiatric A+Ox3, euthymic affect Lymphatic no lymphedema Discharge Data Allergies Allergy/AdvReac Type Severity Reaction Status Date / Time morphine Allergy Intermediate hives Verified 05/16/20 11:39 Cipro AdvReac Unknown REACTION Verified 02/06/18 08:08 WITH METHADONE ciprofloxacin AdvReac Unknown REACTION Verified 05/16/20 11:39 WITH METHADONE clarithromycin AdvReac Unknown REACTION Verified 05/16/20 11:39 WITH METHADONE erythromycin base AdvReac Unknown REACTION Verified 05/16/20 11:39 WITH METHADONE tramadol AdvReac Unknown REACTION Verified 05/16/20 11:39 WITH METHADONE Consultations 05/18/20 03:26 ED Decision to Admit Stat 05/18/20 04:53 Consult Urology Routine Procedures Performed Operation Date: 05/19/20 09:50 Actual Procedures p Left Ureterscopic Laser Lithotripsy(Left) - Ketan Fernandez MD s Cystoscopy(Left) - Ketan Fernandez MD s Left Ureteral Stent Insertion(Left) - Ketan Fernandez MD Ordered Studies 05/19/20 09:50 FL KUB Routine FL fluoroscopy <1hr Routine KUB Hospital Course (1) Kidney stone on left side: Left UPJ 5 mm obstructing stone with hydronephrosis- Treated with IVFs, IV dilaudid, IV acetaminophen Had Urology consult with lithotripsy and placement of left ureteral stent Ok to dc to home on FLomax for stent pain and bladder spasms. 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 Dispo-stable for dc to home Total Time Total Time Spent Total Time Spent (In Minutes): >30 min Total Time Includes: Examination of the Patient, Discharge Planning, Medication Reconciliation and Communication With Other Providers (Urology) Discharge Plan Discharge Items Patient Disposition: Home - Self-Care Reason For Visit: 5MM L UPJ STONE WITH HYDRONEPHROSIS Discharge Diagnosis: Left ureterolithiasis with hydronephrosis Condition on Discharge: Fair Activity: As commented below Lifting: None Bathing: No limitations Exercise/Sports: Wait until after follow-up appointment Non-emergency contact: Primary Care Provider and Urologist Call non-emergency contact if: you have any medication questions, your symptoms worsen, your pain is not controlled, your pain is worsening, your pain is unusual for you, your pain is concerning for you, you have a fever and your temperature is above 101 Follow-up/Referrals: Shola Tillman III, MD [Primary Care Provider] - (Please follow up with your PCP within 1-2 weeks.) Ketan Fernandez MD [Physician] - (Please call for a follow up appointment within 1 week.) Diet: Regular Addtl Attending Provider Instructions: Please take the tamsulosin once daily at bedtime for bladder spasms and for pain associated with your stent. Dr. Fernandez's office will call you with your appointment time on Saturday for stent removal. You can take Percocet you have at home as needed for pain. Pending Studies at Discharge: No Stand-Alone Forms: My [employer], Smoking Cessation Medications and DC Order Prescriptions: New tamsulosin 0.4 mg Capsule 0.4 mg PO HS Qty: 7 RF: 0 Continued methadone 5 mg/5 mL solution 22 mg PO QAM RF: 0 Medical Marijuanana 1 inh PO UD RF: 0 oxycodone-acetaminophen [Percocet] 5-325 mg tablet 1 tab PO Q6H PRN (Reason: pain) Qty: 20 RF: 0 ondansetron 4 mg tablet,disintegrating 4 mg PO Q6 PRN (Reason: nausea and vomiting) Qty: 14 RF: 0 Discharge Orders: Discharge Order (Routine); Ordered 05/19/20 Ordered By: Meri Hunter Admission Data Admit Date/Time: 05/18/20 04:03 Attending Provider: Meri Hunter Admit Provider: Socrates Braga Primary Care Provider: Shola Tillman III Other Providers: Socrates Braga ; Bear Kapoor Coding Level of Care Code D/C Day Management >30 mins Diagnoses Kidney stone on left side N20.0 Renal colic on left side N23 Hydronephrosis concurrent with and due to calculi of kidney and ureter N13.2 Vomiting R11.10 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
[2020-05-19] MEDS ORDERED: TAMSULOSIN HCL 0.4 MG CAP PO SCH (21:00)
== END 2020-05-19 18:50 | disposition home or self-care (01) | DRG 661 ==
LOC: ED 00:39 → SUATTDRO 04:03 → 3W 04:03